=== PATIENT | female | born 1945 | race Caucasian/White ===

== ENCOUNTER 2016-05-05 09:35 | Outpatient (CLI) ==
--- NOTE | 2016-05-05 11:25 | DI ---
Exam: Chest two views History: Cough and hemoptysis Findings: PA and lateral views of the chest were obtained and shows no evidence of concerning pulmo nary nodule or mass nor discrete area of infiltrate or consolidate. Cardiac silhouette is upper nelson its of normal for degree of inspiratory effort taken. No evidence of vascular congestion or redistr ibution, pleural effusion, brooks enlargement nor mediastinal widening identified. Impression: No active cardiac or pulmonary disease. Borderline cardiac enlargement. Patient statu s post prior cervical spinal surgery. Mild elevation of the right hemidiaphragm. Suspect prior cho lecystectomy.
== END 2016-05-05 09:36 | disposition home or self-care (01) ==
LOC: RAD 09:35
PROVIDERS: ATTEND Family Medicine
DX: R04.2 Hemoptysis (principal); R05 Cough

== ENCOUNTER 2016-05-27 08:23 | Outpatient (CLI) ==
[2016-05-27 08:56] LABS: CREATININE 0.78 mg/dL (0.60-1.30)
--- NOTE | 2016-05-27 10:56 | CT ---
EXAM: CT chest with contrast HISTORY: Cough and hemoptysis COMPARISON: Chest x-ray 05/05/[address] abdomen pelvis 08/01/2013 TECHNIQUE: Serial axial images of the chest were obtained after 75 ml of Omnipaque IV contrast was administered. These were obtained from the lung apices to the upper abdomen. FINDINGS: The thyroid is normal. Visualized vessels are unremarkable. There is no dissection, ane urysm or stenosis. The heart is normal in size without pericardial effusion. There is no mediastin al, hilar or axillary pathologically enlarged lymph nodes. There is no pneumothorax or pleural effusion. There is mild bilateral subpleural fibrosis/atelectas is. There is no visualized honeycombing. There is no consolidation or mass. There is a 0.6 cm nod ule in the left lower lobe on image 39. This was poorly visualized, but present on exam 2014 and matty sured approximately 0.5 cm in diameter. No additional nodule is identified. The soft tissues in the upper abdomen on this limited evaluation demonstrate prior cholecystectomy. The osseous structures are unremarkable. IMPRESSION: 1. No acute cardiopulmonary process or consolidation. 2. Anterior left lower lobe pulmonary nodule measuring 0.6 cm in diameter was present on prior CT i n 2013 with minimal interval change. Follow-up CT chest in 1 year is recommended. 3. Mild subpleural fibrosis versus atelectasis is present with no acute consolidation or mass.
== END 2016-05-27 08:24 | disposition home or self-care (01) ==
LOC: RAD 08:23
PROVIDERS: ATTEND Family Medicine
DX: R05 Cough (principal); R04.2 Hemoptysis
CPT/HCPCS: 36415; 82565

== ENCOUNTER 2016-11-17 13:00 | Outpatient (RCR) ==
--- NOTE | 2016-10-21 17:29 | RS.OPPTEV2 ---
Date of Note: 10/20/16 Visit #: 1 Date of Evaluation: 10/20/16 Payer Source: MEDICARE Treatment Diagnosis: Neck pain, left UE pain History of Condition/Mechanism of Injury:: Patient reports left sided neck and shoulder pain began after her ACF on 04/07/16. Prior Level of Function.....Patient was independent with: ADL's, Self Care, Caregiving, Ambulation/Mobility, Community Integration/Access Level of Function: Driving, reading, and recreational activites are difficult because of pain. Functional Limitations: Sleep, Self Care, ADL's, Reaching, Pushing, Pulling, Lifting, Carrying, Community Access/Integration Current Subjective/complaints:: Patient reports ACF was of C4-6. States since surgery, she has not regained her strength in the left UE. States she has pain on the left side of the neck with stiffness. Pain at times will radiate down the left UE into the forearm. She reports difficulty with movement of the left shoulder because of pain. She has headaches daily. Describes pain in and behind and left ear. States she has enjoyed hunting for many years, and this past Spring, she was unable to effectively lan due to lack of left UE strength. 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 Pain Assessment - Pain Description Pain Location: left side of neck and left shoulder Current Pain Intensity: not quantified Worst Pain Intensity: not quantified Functional Outcome Measure Neck Disability Index: 54 - G Codes & Severity Modifier G Codes & Modifier: Body Position current CK. Body Position goal CI Source of G Code score: Neck disability Index Observation - Observation Posture: Forward Head, Rounded Shoulders, Scapula Asymmetry (right scapula lower than the left) Handedness: Right - ROM Comments: Cervical AROM: flexion WFL's, extension ~50% of normal range. Left rotation 50% of normal range, Right rotation 75% of normal range. Right UE AROM is WFL's. Left shoulder AROM is functional, but patient demonstrates difficulty with AROM into abduction and ER. - Left Shoulder ROM Comments: Left shoulder AROM is WFL's. Most pain is with shoulder abduction. - Left Shoulder Strength Left Shoulder Flexion: 4+ Good + Left Shoulder Extension: 5 Normal Left Shoulder Abduction: 4 Good Left Shoulder Adduction: 5 Normal Left Shoulder External Rotation: 4 Good Left Shoulder Internal Rotation: 4 Good - Right Shoulder Strength Right Shoulder Flexion: 5 Normal Right Shoulder Extension: 5 Normal Right Shoulder Abduction: 5 Normal Right Shoulder Adduction: 5 Normal Right Shoulder External Rotation: 5 Normal Right Shoulder Internal Rotation: 5 Normal - Special Tests Shoulder Empty Can (Supraspinatus) Test: Negative Right, Positive Left Shoulder Speed's Sign Test: Negative Left, Negative Right Shoulder Drop Arm Test: Negative Left, Negative Right Shoulder Lemons-Mele Impingement Test: Negative Right, Positive Left Radio Tower Technician Strength Left Hand Radio Tower Technician Strength: 45 lbs. Right Hand Radio Tower Technician Strength: 57 lbs. Dynamometer Testing Position: 2nd Position Palpation Comments:: Demonstrates moderate increased muscle tone along the left upper traps. Minimal increased muscle tone in the right upper traps. Suboccipital myofascia demonstrates increased muscle tone, moderately. Reports discomfort with palpation to the left cervical paraspinals, left upper traps, and superior aspect of the left SCM. Sensation - Sensation Right Lower Extremity: Intact/Normal Left Lower Extremity: Intact/Normal Interventions - Exercise/Activities/Manual Therapy Exercises/Activities: patient instructed in HEP of gentle cervical rotation, scapular retraction, pendulum exercise and RTC series for the left shoulder in a pain free range. 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 She reports left sided neck and UE pain. Moderate increased muscle tone and tenderness noted in the cervical spine and left upper traps region. She exhibits limited cervical rotation bilaterally and pain with left shoulder AROM into abduction. She demosntrates positive Empty Can and Impingement tests on the left shoulder. She presents to be experiencing overlapping symptoms from the neck and the left shoulder. She will benefit from manual therapy, gentle stretching, and cervical spine stability exercises to address the cervical spine. She will also benefit from RTC strengthening and modalities as indicated to reduce symtpoms from the left shoulder. Education and posture awareness training will benefit both areas to be addressed. Patient Education: Education of diagnosis, Body/Joint mechanics, Home Exercise Program, Activity Modification, Education of Plan of Care Rehab Potential: Good Short Term Goals Goal #1: Patient independent in initial HEP. Goal to be met by: 11/04/16 Goal #2: Muscle tone at left upper traps decreased to minimal. Goal to be met by: 11/04/16 Goal #3: Cervical rotation bilaterally WFL's. Goal to be met by: 11/04/16 Goal #4: Headaches decreased to occasional. Goal to be met by: 11/04/16 [employer] Tech Goals Goal #1: Pt knows HEP and to continue ex's to maintain functional level at D/C. Goal to be met by: 12/05/16 Goal #2: Score on Neck Disability Index improved to 32. Goal to be met by: 12/05/16 Goal #3: Pt able to drive without neck pain or limitation of neck motion. Goal to be met by: 12/05/16 Goal #4: Pt able to perform ADL's and reaching without left shoulder pain. Goal to be met by: 12/05/16 Plan - Treatment to be Provided Procedures: Therapeutic Exercises, Therapeutic Activity, Manual Therapy, Patient Education Modalities: Electrical Stimulation, Ultrasound/Phonophoresis (left shoulder), Cryotherapy, Hot Packs - Treatment Plan Frequency: 3 X week Duration: 4 weeks ORDER # VISITS AND/OR THROUGH DATE: 12/05/16 - Treatment Code (1) Neck pain Comments: M54.2 (2) Left shoulder pain Qualifiers: Chronicity: acute Qualified Description: Acute pain of left shoulder Qualifier Code(s): (M25.512) Pain in left shoulder (3) Status post cervical spinal fusion Comments: Z98.1
--- NOTE | 2016-10-22 14:48 | RS.OPPTDN ---
Subjective Date of Note: 10/22/16 Visit #: 2 Date of Evaluation: 10/20/16 Payer Source: MEDICARE Treatment Diagnosis: Neck pain, left UE pain Current Subjective/complaints:: Patient reports some of her shoulder exercises seem to elevate her pain .We discussed to do HEP in PAIN FREE ROM. Pain Assessment - Pain Description Pain Location: left side of neck and left shoulder Pain Description: Radiating, Aching Current Pain Intensity: not quantified - Treatment Modality: Electrical Stim Unattended Parameters/Method Applied: 20 mins. high volt to L upper traps. and cervical paraspinals,2 electrodes @ 115 pv. Patient Position: Sitting - Heat/Cryotherapy Treatment: Hot Pack (concurrent with e-stim) Interventions - Exercise/Activities/Manual Therapy Exercises/Activities: Gentle cervical rotation, scapular retraction, pendulum exercise and RTC series for the left shoulder in a pain free range. Total minutes of Exercise: 15 Manual Therapy: 20 mins. DTM to upper traps and cervical paraspinals . Total minutes of Manual Therapy: 20 HOME EXERCISE PROGRAM: cervical rotation stretch, scapular retraction, pendulum and RTC series for left shoulder - Charges Total Direct Minutes: 35 Total Treatment Time: 55 Procedures billed for this date of service:: hp,e-stim,ex,manual therapy Assessment: Patient has increase pain with AROM of the L UE,especially involving the supraspinatus action.She has increased tone in the L upper traps. and L cervical paraspinals.She is very attentive to recommendations regarding the HEP. Patient Education: Education of diagnosis, Body/Joint mechanics, Home Exercise Program, Home Safety, Activity Modification, Education of Plan of Care Short Term Goals Goal #1: Patient independent in initial HEP. Goal to be met by: 11/04/16 Progress towards Goal:: Progressing Goal #2: Muscle tone at left upper traps decreased to minimal. Goal to be met by: 11/04/16 Goal #3: Cervical rotation bilaterally WFL's. Goal to be met by: 11/04/16 Goal #4: Headaches decreased to occasional. Goal to be met by: 11/04/16 Metal Annealer Goals Goal #1: Pt knows HEP and to continue ex's to maintain functional level at D/C. Goal to be met by: 12/05/16 Goal #2: Score on Neck Disability Index improved to 32. Goal to be met by: 12/05/16 Goal #3: Pt able to drive without neck pain or limitation of neck motion. Goal to be met by: 12/05/16 Goal #4: Pt able to perform ADL's and reaching without left shoulder pain. Goal to be met by: 12/05/16 Plan PLAN OF CARE EXPIRES ON:: 12/05/16 ORDER # VISITS AND/OR THROUGH DATE: 12/05/16 PLAN: Continue Plan of Care
--- NOTE | 2016-10-27 14:45 | RS.OPPTDN ---
Subjective Date of Note: 10/27/16 Visit #: 3 Date of Evaluation: 10/20/16 Payer Source: MEDICARE Treatment Diagnosis: Neck pain, left UE pain Current Subjective/complaints:: Patient reports some relief from her headache after last session.The L shoulder pain is dependent upon position of the L UE. Pain Assessment - Pain Description Pain Location: left side of neck and left shoulder Pain Description: Radiating, Aching Current Pain Intensity: not quantified - Treatment Modality: Electrical Stim Unattended Parameters/Method Applied: 20 mins. high - volt to L cervical paraspinals and L upper traps. @ 150 pv. Patient Position: Sitting - Heat/Cryotherapy Treatment: Hot Pack (concurrent with e-stim) Interventions - Exercise/Activities/Manual Therapy Exercises/Activities: Gentle cervical rotation, scapular retraction, chin tucks, patient ed. for RTC exercises.AAROM of L shoulder in all directions,but no overhead motion due to pain. Total minutes of Exercise: 20 Manual Therapy: 20 mins. DTM to upper traps and cervical paraspinals . Total minutes of Manual Therapy: 20 HOME EXERCISE PROGRAM: cervical rotation stretch, scapular retraction, pendulum and RTC series for left shoulder - Charges Total Direct Minutes: 40 Total Treatment Time: 60 Procedures billed for this date of service:: hp,e-stim,ex,manual therapy. Assessment: Patient reports relief from headache after PT today.Her cervical rotation to the L is limited 50% of normal.She needs tactile cues for proper technique doing chin tucks today ,but improves as reps. progress.She has increased tone in the cervical paraspinals and muscle belly of the L upper trap. Patient Education: Education of diagnosis, Body/Joint mechanics, Home Exercise Program, Home Safety, Activity Modification, Education of Plan of Care Short Term Goals Goal #1: Patient independent in initial HEP. Goal to be met by: 11/04/16 Progress towards Goal:: Progressing Goal #2: Muscle tone at left upper traps decreased to minimal. Goal to be met by: 11/04/16 Goal #3: Cervical rotation bilaterally WFL's. Goal to be met by: 11/04/16 Goal #4: Headaches decreased to occasional. 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 Goal to be met by: 12/05/16 Progress towards goal: Progressing Goal #2: Score on Neck Disability Index improved to 32. Goal to be met by: 12/05/16 Goal #3: Pt able to drive without neck pain or limitation of neck motion. Goal to be met by: 12/05/16 Goal #4: Pt able to perform ADL's and reaching without left shoulder pain. Goal to be met by: 12/05/16 Progress towards goal: No Change Plan PLAN OF CARE EXPIRES ON:: 12/05/16 ORDER # VISITS AND/OR THROUGH DATE: 12/05/16 PLAN: Continue Plan of Care
--- NOTE | 2016-10-29 14:20 | RS.OPPTDN ---
Subjective Date of Note: 10/29/16 Visit #: 4 Date of Evaluation: 10/20/16 Payer Source: MEDICARE Treatment Diagnosis: Neck pain, left UE pain Current Subjective/complaints:: Patient reports the neck feels better today,and she is doing her exercises. Pain Assessment - Pain Description Pain Location: left side of neck and left shoulder Pain Description: Dull, Aching Current Pain Intensity: 3-4/10 Other Comments regarding Pain:: muscle soreness in the upper traps - Treatment Modality: Electrical Stim Unattended Parameters/Method Applied: 20 mins. high volt ,2 electrodes to each upper trap @ 145 pv. Patient Position: Sitting - Heat/Cryotherapy Treatment: Hot Pack (concurrent with e-stim) Interventions - Exercise/Activities/Manual Therapy Exercises/Activities: HEP review during manual therapy. Total minutes of Exercise: 0 Manual Therapy: 35 mins. DTM to upper traps and cervical paraspinals . Total minutes of Manual Therapy: 35 HOME EXERCISE PROGRAM: cervical rotation stretch, scapular retraction, pendulum and RTC series for left shoulder - Charges Total Direct Minutes: 35 Total Treatment Time: 55 Procedures billed for this date of service:: hp,e-stim,manual therapy Assessment: Patient has decreased tone in the upper traps. today,less tender to palpate the occipital region.She has good understanding of the HEP,has improved awareness of her posture. Patient Education: Body/Joint mechanics, Home Exercise Program, Education of Plan of Care Patient demonstrates compliance with HEP?: Yes Short Term Goals Goal #1: Patient independent in initial HEP. Goal to be met by: 11/04/16 Progress towards Goal:: Progressing Goal #2: Muscle tone at left upper traps decreased to minimal. Goal to be met by: 11/04/16 Progress towards Goal:: Progressing Goal #3: Cervical rotation bilaterally WFL's. Goal to be met by: 11/04/16 (R improving,no change in L rotation) Progress towards Goal:: Progressing Goal #4: Headaches decreased to occasional. Goal to be met by: 11/04/16 Progress towards Goal:: Progressing [employer] Consultant Goals Goal #1: Pt knows HEP and to continue ex's to maintain functional level at D/C. Goal to be met by: 12/05/16 Progress towards goal: Progressing Goal #2: Score on Neck Disability Index improved to 32. Goal to be met by: 12/05/16 Goal #3: Pt able to drive without neck pain or limitation of neck motion. Goal to be met by: 12/05/16 Goal #4: Pt able to perform ADL's and reaching without left shoulder pain. Goal to be met by: 12/05/16 Progress towards goal: No Change Plan PLAN OF CARE EXPIRES ON:: 12/05/16 ORDER # VISITS AND/OR THROUGH DATE: 12/05/16 PLAN: Continue Plan of Care
--- NOTE | 2016-11-03 14:43 | RS.OPPTDN ---
Subjective Date of Note: 11/03/16 Visit #: 5 Date of Evaluation: 10/20/16 Payer Source: MEDICARE Treatment Diagnosis: Neck pain, left UE pain Current Subjective/complaints:: Reports the therapy is helping .She feels the neck is progressing well,but does have concerns regarding the L shoulder pain. Pain Assessment - Pain Description Pain Location: left side of neck and left shoulder Pain Description: Dull Current Pain Intensity: none in neck,unchanged in the L shoulder - Heat/Cryotherapy Treatment: Hot Pack (15 mins. to cervical,prior to exercises and manual ) Interventions - Exercise/Activities/Manual Therapy Exercises/Activities: 20 mins. of yellow theraband exercises,including postural pullbacks at shoulder level,L shoulder IR and ER with UE abducted ~ 40 degrees.Cervical chin tucks ,rotation to L and R . Total minutes of Exercise: 20 Manual Therapy: 30 mins. DTM to upper traps and cervical paraspinals . Total minutes of Manual Therapy: 30 HOME EXERCISE PROGRAM: cervical rotation stretch, scapular retraction, pendulum and RTC series for left shoulder - Charges Total Direct Minutes: 50 Total Treatment Time: 65 Procedures billed for this date of service:: hp,ex ,manual therapy 2 Assessment: Patient has improved cervical motion with less report of pain today.She can tolerate use of the L UE for tasks below shoulder,but overhead reaching or reaching away from the body elicits pain.She does have good understanding of HEP and joint protection. Patient demonstrates compliance with HEP?: Yes Short Term Goals Goal #1: Patient independent in initial HEP. Goal to be met by: 11/04/16 Progress towards Goal:: Progressing Goal #2: Muscle tone at left upper traps decreased to minimal. Goal to be met by: 11/04/16 Progress towards Goal:: Partially Met Goal #3: Cervical rotation bilaterally WFL's. Goal to be met by: 11/04/16 Progress towards Goal:: Progressing Goal #4: Headaches decreased to occasional. Goal to be met by: 11/04/16 Progress towards Goal:: Progressing Group Home Goals Goal #1: Pt knows HEP and to continue ex's to maintain functional level at D/C. Goal to be met by: 12/05/16 Progress towards goal: Progressing Goal #2: Score on Neck Disability Index improved to 32. Goal to be met by: 12/05/16 Goal #3: Pt able to drive without neck pain or limitation of neck motion. Goal to be met by: 12/05/16 Progress towards goal: Progressing Goal #4: Pt able to perform ADL's and reaching without left shoulder pain. Goal to be met by: 12/05/16 Progress towards goal: No Change Plan PLAN OF CARE EXPIRES ON:: 12/05/16 ORDER # VISITS AND/OR THROUGH DATE: 12/05/16 PLAN: Continue Plan of Care
--- NOTE | 2016-11-05 15:28 | RS.OPPTDN ---
Subjective Date of Note: 11/05/16 Visit #: 6 Date of Evaluation: 10/20/16 Payer Source: MEDICARE Treatment Diagnosis: Neck pain, left UE pain Current Subjective/complaints:: Patient reports she continues to feel better.She does report slight increased stiffness in the neck and L shoulder , possibly due to rainy weather. Pain Assessment - Pain Description Pain Location: left side of neck and left shoulder Pain Description: Dull Current Pain Intensity: none in neck,unchanged in the L shoulder - Treatment Modality: Electrical Stim Unattended Parameters/Method Applied: 20 mins. high volt to upper traps ,2 electrodes,@ 165 - 185 pv. Patient Position: Sitting - Heat/Cryotherapy Treatment: Hot Pack (20 mins. prior to manual therapy) Interventions - Exercise/Activities/Manual Therapy Exercises/Activities: N/A today Total minutes of Exercise: 0 Manual Therapy: 35 mins. DTM to upper traps and cervical paraspinals . Total minutes of Manual Therapy: 35 HOME EXERCISE PROGRAM: cervical rotation stretch, scapular retraction, pendulum and RTC series for left shoulder - Charges Total Direct Minutes: 35 Total Treatment Time: 55 Procedures billed for this date of service:: hp,e-stim,manual therapy 2 Assessment: Patient has decreased neck pain ,also less frequent ,less duration with ADL's.The L shoulder has no significant change,still reports difficulty with reaching away from midline ,causing pain and feeling weak. Patient Education: Education of diagnosis, Body/Joint mechanics, Home Exercise Program, Home Safety, Activity Modification, Education of Plan of Care Patient demonstrates compliance with HEP?: Yes Short Term Goals Goal #1: Patient independent in initial HEP. Goal to be met by: 11/04/16 Progress towards Goal:: Partially Met Goal #2: Muscle tone at left upper traps decreased to minimal. Goal to be met by: 11/04/16 Progress towards Goal:: Partially Met Goal #3: Cervical rotation bilaterally WFL's. Goal to be met by: 11/04/16 Progress towards Goal:: Partially Met Goal #4: Headaches decreased to occasional. Goal to be met by: 11/04/16 Progress towards Goal:: Partially Met Detention Goals Goal #1: Pt knows HEP and to continue ex's to maintain functional level at D/C. Goal to be met by: 12/05/16 Progress towards goal: Progressing Goal #2: Score on Neck Disability Index improved to 32. Goal to be met by: 12/05/16 Goal #3: Pt able to drive without neck pain or limitation of neck motion. Goal to be met by: 12/05/16 Progress towards goal: Progressing Goal #4: Pt able to perform ADL's and reaching without left shoulder pain. Goal to be met by: 12/05/16 Progress towards goal: No Change Plan PLAN OF CARE EXPIRES ON:: 12/05/16 ORDER # VISITS AND/OR THROUGH DATE: 12/05/16 PLAN: Continue Plan of Care
--- NOTE | 2016-11-10 16:11 | RS.OPPTDN ---
Subjective Date of Note: 11/10/16 Visit #: 7 Date of Evaluation: 10/20/16 Payer Source: MEDICARE Treatment Diagnosis: Neck pain, left UE pain Current Subjective/complaints:: Patient reports an increase in left upper trap and shoulder pain today. States she aggravated pain over the weekend. Pain Assessment - Pain Description Pain Location: left side of neck and left shoulder Pain Description: Dull Current Pain Intensity: none in neck,unchanged in the L shoulder - Treatment Modality: Electrical Stim Unattended Parameters/Method Applied: [id number] HVGC to 130p.v. with 4 small pads to the cervical paraspinals and upper traps with HP prior to MT. Patient Position: Sitting - Heat/Cryotherapy Treatment: Hot Pack ([id number] with Estim ) Interventions - Exercise/Activities/Manual Therapy Exercises/Activities: Gentle cervical lateral flexion stretching. Reviewed isometric cervical retraction and lateral flexion for HEP. Total minutes of Exercise: 3mins Manual Therapy: 25 mins. DTM to upper traps and cervical paraspinals. Patient in sitting. Total minutes of Manual Therapy: 25mins HOME EXERCISE PROGRAM: cervical rotation stretch, scapular retraction, pendulum and RTC series for left shoulder - Charges Total Direct Minutes: 28mins Total Treatment Time: 48mins Procedures billed for this date of service:: HP, Estim unattended, MT2 Assessment: Patient responds well to treatment and will need to progress with HEP. Patient Education: Home Exercise Program Patient demonstrates compliance with HEP?: Yes Short Term Goals Goal #1: Patient independent in initial HEP. Goal to be met by: 11/04/16 Progress towards Goal:: Partially Met Goal #2: Muscle tone at left upper traps decreased to minimal. Goal to be met by: 11/04/16 Progress towards Goal:: Partially Met Goal #3: Cervical rotation bilaterally WFL's. Goal to be met by: 11/04/16 Progress towards Goal:: Partially Met Goal #4: Headaches decreased to occasional. Goal to be met by: 11/04/16 Progress towards Goal:: Partially Met Assisted Goals Goal #1: Pt knows HEP and to continue ex's to maintain functional level at D/C. Goal to be met by: 12/05/16 Progress towards goal: Progressing Goal #2: Score on Neck Disability Index improved to 32. Goal to be met by: 12/05/16 Goal #3: Pt able to drive without neck pain or limitation of neck motion. Goal to be met by: 12/05/16 Progress towards goal: Progressing Goal #4: Pt able to perform ADL's and reaching without left shoulder pain. Goal to be met by: 12/05/16 Progress towards goal: No Change Plan PLAN OF CARE EXPIRES ON:: 12/05/16 ORDER # VISITS AND/OR THROUGH DATE: 12/05/16 PLAN: Continue Plan of Care
--- NOTE | 2016-11-12 14:13 | RS.OPPTDN ---
Subjective Date of Note: 11/12/16 Visit #: 8 Date of Evaluation: 10/20/16 Payer Source: MEDICARE Treatment Diagnosis: Neck pain, left UE pain Current Subjective/complaints:: Patient reports the neck continues to improve,L shoulderis the same. Pain Assessment - Pain Description Pain Location: left side of neck and left shoulder Pain Description: Dull, Aching Current Pain Intensity: 2/10 - Treatment Modality: Electrical Stim Unattended Parameters/Method Applied: 20 mins. high volt to upper traps , 2 large electrodes @ 145 pv. Patient Position: Sitting - Heat/Cryotherapy Treatment: Hot Pack (concurrent with e-stim) Interventions - Exercise/Activities/Manual Therapy Exercises/Activities: HEP review only. Total minutes of Exercise: 0 Manual Therapy: 20 mins. DTM to upper traps and cervical paraspinals. Patient in sitting. Total minutes of Manual Therapy: 20 HOME EXERCISE PROGRAM: cervical rotation stretch, scapular retraction, pendulum and RTC series for left shoulder - Charges Total Direct Minutes: 20 Total Treatment Time: 40 Procedures billed for this date of service:: hp,e-stim,manual 1 Assessment: Patient reports less difficulty with driving and also less frequency of headaches.She is very attentive and compliant to HEP. Patient Education: Education of Plan of Care Patient demonstrates compliance with HEP?: Yes Short Term Goals Goal #1: Patient independent in initial HEP. Goal to be met by: 11/04/16 Progress towards Goal:: Met Goal #2: Muscle tone at left upper traps decreased to minimal. Goal to be met by: 11/04/16 Progress towards Goal:: Partially Met Goal #3: Cervical rotation bilaterally WFL's. Goal to be met by: 11/04/16 Progress towards Goal:: Partially Met Goal #4: Headaches decreased to occasional. 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 Goal to be met by: 12/05/16 Progress towards goal: Partially Met Goal #2: Score on Neck Disability Index improved to 32. Goal to be met by: 12/05/16 Goal #3: Pt able to drive without neck pain or limitation of neck motion. Goal to be met by: 12/05/16 Progress towards goal: Partially Met Goal #4: Pt able to perform ADL's and reaching without left shoulder pain. Goal to be met by: 12/05/16 Progress towards goal: No Change Plan PLAN OF CARE EXPIRES ON:: 12/05/16 ORDER # VISITS AND/OR THROUGH DATE: 12/05/16 PLAN: Continue Plan of Care
--- NOTE | 2016-11-17 14:13 | RS.OPPTDN ---
Subjective Date of Note: 11/17/16 Visit #: 9 Date of Evaluation: 10/20/16 Payer Source: MEDICARE Treatment Diagnosis: Neck pain, left UE pain Current Subjective/complaints:: Patient reports she has not had a hedahe for about one week,pleased with her progress in regards to the neck.The L shoulder is the same ,she reached to get money from [employer] earlier today while in her car , causing sudden ,sharp pain . Pain Assessment - Pain Description Pain Location: left shoulder only today Pain Description: Dull, Aching Current Pain Intensity: 0 in neck,L shoulder varies - Treatment Modality: Electrical Stim Unattended Parameters/Method Applied: 20 mins. high volt to upper traps.,2 large electrodes @ 155 pv. Patient Position: Sitting - Heat/Cryotherapy Treatment: Hot Pack (concurrent wirh e-stim) Interventions - Exercise/Activities/Manual Therapy Exercises/Activities: HEP review only. Total minutes of Exercise: 0 Manual Therapy: 20 mins. DTM to upper traps and cervical paraspinals. Patient in sitting. HOME EXERCISE PROGRAM: cervical rotation stretch, scapular retraction, pendulum and RTC series for left shoulder - Charges Total Direct Minutes: 20 Total Treatment Time: 40 Procedures billed for this date of service:: hp,e-stim,manual Assessment: Patient has no neck pain today,less frequent headaches.The L shoulder is basically unchanged,the varied pain due to positioning of the L UE. Patient Education: Education of Plan of Care Patient demonstrates compliance with HEP?: Yes Short Term Goals Goal #1: Patient independent in initial HEP. Goal to be met by: 11/04/16 Progress towards Goal:: Met Goal #2: Muscle tone at left upper traps decreased to minimal. Goal to be met by: 11/04/16 Progress towards Goal:: Partially Met Goal #3: Cervical rotation bilaterally WFL's. Goal to be met by: 11/04/16 Progress towards Goal:: Partially Met Goal #4: Headaches decreased to occasional. Goal to be met by: 11/04/16 Progress towards Goal:: Partially Met Usp Goals Goal #1: Pt knows HEP and to continue ex's to maintain functional level at D/C. Goal to be met by: 12/05/16 Progress towards goal: Met Goal #2: Score on Neck Disability Index improved to 32. Goal to be met by: 12/05/16 Goal #3: Pt able to drive without neck pain or limitation of neck motion. Goal to be met by: 12/05/16 Progress towards goal: Partially Met Goal #4: Pt able to perform ADL's and reaching without left shoulder pain. Goal to be met by: 12/05/16 Progress towards goal: No Change Plan PLAN OF CARE EXPIRES ON:: 12/05/16 ORDER # VISITS AND/OR THROUGH DATE: 12/05/16 PLAN: Continue Plan of Care
--- NOTE | 2016-11-19 08:19 | RS.CXNS ---
Date of scheduled appointment: 11/19/16 Type: Cancel Reason for Cancel/NS: Sick,re-scheduled for next 11-25-16.
== END 2016-11-19 ==
PROVIDERS: ATTEND Neurological Surgery
DX: M47.812 Spondylosis without myelopathy or radiculopathy, cervical region (principal)

== ENCOUNTER 2016-11-25 12:46 | Outpatient (RCR) ==
--- NOTE | 2016-11-25 14:33 | RS.OPPTDN ---
Subjective Date of Note: 11/25/16 Visit #: 10 Date of Evaluation: 10/20/16 Payer Source: MEDICARE Treatment Diagnosis: Neck pain, left UE pain Current Subjective/complaints:: Pleased with her progress,agrees with D/C plan today.She has purchased a TENS unit for home use,is doing her home exercises for the neck.She plans to see orthopaedic doctor regarding the L shoulder pain , which has unchanged. Pain Assessment - Pain Description Pain Location: left shoulder only today Pain Description: Aching Current Pain Intensity: 0 in neck,L shoulder varies with positioning - Treatment Modality: Electrical Stim Unattended Parameters/Method Applied: 20 mins. high volt ,2 large electrodes to upper traps ,@ 170 pv. Patient Position: Sitting - Heat/Cryotherapy Treatment: Hot Pack (concurrent with e-stim) Interventions - Exercise/Activities/Manual Therapy Exercises/Activities: HEP review while receiving manual therapy. Total minutes of Exercise: 0 Manual Therapy: 20 mins. DTM to upper traps and cervical paraspinals. Patient in sitting. Total minutes of Manual Therapy: 20 HOME EXERCISE PROGRAM: cervical rotation stretch, scapular retraction, pendulum and RTC series for left shoulder - Charges Total Direct Minutes: 20 Total Treatment Time: 40 Procedures billed for this date of service:: hp,e-stim,ex 1 Assessment: Patient has met or partially met rehab goals ,is very compliant to recommendations for pain control and joint protection.The L shoulder continues to be painful when reaching away from midline or overhead.She does plan to get a referral for the shoulder care. Patient Education: Body/Joint mechanics, Home Exercise Program, Activity Modification, Education of Plan of Care Patient demonstrates compliance with HEP?: Yes Short Term Goals Goal #1: Patient independent in initial HEP. Goal to be met by: 11/04/16 Progress towards Goal:: Met Goal #2: Muscle tone at left upper traps decreased to minimal. Goal to be met by: 11/04/16 Progress towards Goal:: Partially Met Goal #3: Cervical rotation bilaterally WFL's. Goal to be met by: 11/04/16 Progress towards Goal:: Met Goal #4: Headaches decreased to occasional. Goal to be met by: 11/04/16 Progress towards Goal:: Partially Met Retirement Goals Goal #1: Pt knows HEP and to continue ex's to maintain functional level at D/C. Goal to be met by: 12/05/16 Progress towards goal: Met Goal #2: Score on Neck Disability Index improved to 32. Goal to be met by: 12/05/16 (30) Progress towards goal: Met Goal #3: Pt able to drive without neck pain or limitation of neck motion. Goal to be met by: 12/05/16 Progress towards goal: Met Goal #4: Pt able to perform ADL's and reaching without left shoulder pain. Goal to be met by: 12/05/16 Progress towards goal: No Change Plan PLAN OF CARE EXPIRES ON:: 12/05/16 ORDER # VISITS AND/OR THROUGH DATE: 12/05/16 PLAN: Plan for Discharge
== END 2016-12-19 ==
PROVIDERS: ATTEND Neurological Surgery
DX: M47.812 Spondylosis without myelopathy or radiculopathy, cervical region (principal)

== ENCOUNTER 2018-05-27 13:58 | Outpatient (CLI) ==
--- NOTE | 2018-05-27 15:00 | DI ---
EXAM: CERVICAL SPINE, 3 VIEWS HISTORY: Cervical spondylosis. FINDINGS: No comparison. Anterior stabilization hardware and disc spacers extend from C4 through C6 . Hardware appears intact. There is no noticeable spondylolisthesis. The bones appear demineralize d. No acute fracture is obvious. Facet arthropathy is most noted at the cervical thoracic junction. There is diffuse degenerative disc disease. No scoliosis. Lateral masses of C1 and C2 are normal ly aligned and the odontoid process is intact. IMPRESSION: 1. Postop changes of the spine. Degenerative disc and facet disease. No acute findings.
--- NOTE | 2018-05-27 15:19 | DI ---
EXAM: Three views of the lumbar spine HISTORY: Lumbar disc degenerative disease. COMPARISON: Lumbar spine x-ray 01/19/2011 FINDINGS: No acute compression fracture or subluxation. There is trace anterolisthesis of L4 on L5. There is moderate facet arthropathy. There is no lytic or blastic lesion. Soft tissues demonstrate surgical clips in right upper quadrant. IMPRESSION: Trace anterolisthesis of L4 on L5 with moderate degenerative disease of the lumbosacral spine.
--- NOTE | 2018-05-27 15:21 | DI ---
EXAM: Three views of the thoracic spine HISTORY: Degenerative disease of the spine. COMPARISON: CT chest 05/27/2016 FINDINGS: There is no acute compression fracture or subluxation. There is no lytic or blastic lesion . There is multilevel disc space narrowing and minimal osteophyte formation. The soft tissues are u nremarkable IMPRESSION: Scattered degenerative disease of the thoracic spine. There is no acute compression fra cture noted.
--- NOTE | 2018-05-28 11:08 | MRI ---
EXAM: MRI lumbar spine without IV contrast. DATE: 27 May 2018. HISTORY: Lumbar disc disorder. Low back pain. Bilateral lower extremity numbness. TECHNIQUE: Sagittal and axial T1W and T2W sequences of the lumbar spine along with sagittal IR and c oronal T2W sequences were obtained using 1.2 Tatiana magnet. No IV contrast. COMPARISON: LS spine series [address] abdomen/pelvis 08/01/2013. FINDINGS: There are five [id number] lumbar vertebra. No lumbar scoliosis is evident. A 2.2 mm anterolisthesis of L4 relative to L5 is evident. No other subluxation, acute fracture, osseous bhargavi gnancy, or pars interarticularis defect is demonstrated. Lumbar vertebra are normal in height. Smal l osteophytes are visible at L1-2. T2W/T1W bone marrow signal is brighter than typically seen. Mode rate L1-2 and minor L4-5 disc space narrowing is detected. No acute sacral fracture or stress reacti on is evident. SI joints are unremarkable. Conus medullaris terminates at L2. No cord edema, syrin x, myelomalacia, or neoplasm is identified. No retroperitoneal lymphadenopathy, paraspinal mass, or aortic aneurysm is detected. Atherosclerotic plaques are present within the aortic wall. Paraspinal musculature is symmetric bilaterally. Visib le portions of the liver, spleen, adrenal glands and kidneys reveal no distinct abnormality. CBD is 9 mm diameter, without distinct choledocholithiasis, pancreatic head mass, or pancreatitis. Gallblad aspen is surgically absent. Segmental analysis: T11-12: Normal. T12-L1: Minimal posterior disc bulge does not cause cord compression, central stenosis or foraminal stenosis. L1-2: Small concentric disc bulge and minor facet arthropathy cause mild bilateral foraminal stenose s. No central canal stenosis. L2-3: Minor posterior to foraminal disc bulge causes slight bilateral inferior foraminal encroachmen t. No central canal stenosis. L3-4: Minor posterior to foraminal disc bulge, mild facet arthropathy, and mild ligamentum flavum hy pertrophy cause triangulation of the canal and slight bilateral foraminal encroachment. L4-5: Minor anterolisthesis of L4, pseudodisc bulge, marked bilateral facet arthropathy, and mild li gamentum flavum hypertrophy cause mild central canal stenosis, mild right foraminal stenosis, and mil d/moderate narrowing at the opening to the left foramen. Left L4 nerve root approaches the disc bulg e near the lateral margin of the foramen. L5-S1: Minor posterior disc bulge, marked right facet arthropathy, and moderate left facet arthropat hy cause minor bilateral foraminal encroachment. No central canal stenosis. IMPRESSIONS: 1. Lumbar spine minor spondylosis, multilevel facet arthropathy (especially L4-5 and L5-S1), and mul tilevel DDD. 2. Triangulation of canal at L3-4. Mild central stenosis at L4-5. 3. Multilevel lumbar foraminal stenoses, especially left L5-S1. Left L4 nerve root may contact the disc bulge near the lateral margin of the foramen, and might be a source for pain/radiculopathy. 4. Bone marrow signal suspicious for osteopenia. Consider bone densitometry. 5. Mild abdominal aortic atherosclerosis. 6. S/P cholecystectomy, this 9 mm CBD is likely within normal limits.
== END 2018-05-27 13:59 | disposition home or self-care (01) ==
LOC: RAD 13:58
PROVIDERS: ATTEND Pain Medicine Interventional Pain Medicine
DX: M51.16 Intervertebral disc disorders with radiculopathy, lumbar region (principal); M51.17 Intervertebral disc disorders with radiculopathy, lumbosacral region; M51.36 Other intervertebral disc degeneration, lumbar region; M51.37 Other intervertebral disc degeneration, lumbosacral region; M50.121 Cervical disc disorder at C4-C5 level with radiculopathy; M48.02 Spinal stenosis, cervical region; M50.31 Other cervical disc degeneration, high cervical region; M50.321 Other cervical disc degeneration at C4-C5 level; M50.322 Other cervical disc degeneration at C5-C6 level; M50.323 Other cervical disc degeneration at C6-C7 level; M50.33 Other cervical disc degeneration, cervicothoracic region; M47.892 Other spondylosis, cervical region; M47.812 Spondylosis without myelopathy or radiculopathy, cervical region; M47.813 Spondylosis without myelopathy or radiculopathy, cervicothoracic region; M96.1 Postlaminectomy syndrome, not elsewhere classified; M51.34 Other intervertebral disc degeneration, thoracic region; M51.35 Other intervertebral disc degeneration, thoracolumbar region; G58.0 Intercostal neuropathy

== ENCOUNTER 2021-10-24 10:09 | Inpatient (IN) ==
[2021-10-24 12:23] VITALS: BMI 29.5
[2021-10-24] MEDS ORDERED: VENOFER IV ONE (13:07)
[2021-10-24] MEDS ORDERED: SODIUM CHLORIDE IV ONE (13:07)
[2021-10-24] MEDS ORDERED: INJECTAFER 750 MG in SODIUM CHLORIDE 100ML 100 ML IV ONE (13:30)
[2021-10-24 13:53] LABS: BASOPHILS # (AUTO) 0.1 K/uL (0-0.2); BASOPHILS % (AUTO) 0.6 % (0.0-3.0); EOSINOPHILS # (AUTO) 0.4 K/ul (0.0-0.7); EOSINOPHILS % (AUTO) 3.7 % (0.0-7.0); HEMATOCRIT 25.8 % (37.0-47.0); HEMOGLOBIN 7.4 g/dl (12.0-16.0); IMMATURE GRANULOCYTE % (AUTO) 0.3 % (0.0-5.0); LYMPHOCYTES # (AUTO) 1.3 K/uL (0.60-3.4); LYMPHOCYTES % (AUTO) 13.9 (10.0-50.0); MEAN CORPUSCULAR HEMOGLOBIN 24.3 pg (27.0-31.0); MEAN CORPUSCULAR HGB CONC 28.7 (31.8-35.4); MEAN CORPUSCULAR VOLUME 84.9 fl (81.0-99.0); MONOCYTES # (AUTO) 1.6 K/uL (0.4-2.0); MONOCYTES % (AUTO) 16.2 (0-10); NEUTROPHILS # (AUTO) 6.3 K/ul (2.0-6.9); NEUTROPHILS % (AUTO) 65.3 % (42.2-75.2); PLATELET COUNT 272 10^3/uL (140-440); RDW COEFFICIENT OF VARIATION 20.2 % (11.6-14.8); RED BLOOD COUNT 3.04 10^6/ul (4.20-5.40); WHITE BLOOD COUNT 9.64 K/ul (4.6-10.2)
[2021-10-24 14:03] LABS: HYPOCHROMASIA 2+ (NOT PRESENT); POIKILOCYTOSIS 1+ (NOT PRESENT)
[2021-10-24 14:04] LABS: ANISOCYTOSIS 1+ (NOT PRESENT)
[2021-10-24] MEDS: NORCO 7.5-325 PO SCH ×2 (14:47→20:43)
[2021-10-24] MEDS: NEURONTIN PO SCH ×2 (14:47→20:43)
[2021-10-24 20:17] LABS: HEMATOCRIT 27.9 % (37.0-47.0); HEMOGLOBIN 8.2 g/dl (12.0-16.0)
[2021-10-24] MEDS: ELAVIL PO SCH (20:42)
[2021-10-24] MEDS: LIPITOR PO SCH (20:42)
[2021-10-24] MEDS: CORDARONE PO SCH (20:42)
[2021-10-25] MEDS: LASIX TAB PO SCH (06:40)
[2021-10-25] MEDS: SYNTHROID PO SCH (06:40)
[2021-10-25 06:44] LABS: BASOPHILS # (AUTO) 0.1 K/uL (0-0.2); BASOPHILS % (AUTO) 0.9 % (0.0-3.0); EOSINOPHILS # (AUTO) 0.4 K/ul (0.0-0.7); EOSINOPHILS % (AUTO) 5.2 % (0.0-7.0); HEMATOCRIT 29.6 % (37.0-47.0); HEMOGLOBIN 8.7 g/dl (12.0-16.0); IMMATURE GRANULOCYTE # (AUTO) 0.1 (0.0-1.0); IMMATURE GRANULOCYTE % (AUTO) 0.6 % (0.0-5.0); LYMPHOCYTES # (AUTO) 1.3 K/uL (0.60-3.4); LYMPHOCYTES % (AUTO) 16.2 (10.0-50.0); MEAN CORPUSCULAR HEMOGLOBIN 24.9 pg (27.0-31.0); MEAN CORPUSCULAR HGB CONC 29.4 (31.8-35.4); MEAN CORPUSCULAR VOLUME 84.8 fl (81.0-99.0); MONOCYTES # (AUTO) 1.1 K/uL (0.4-2.0); MONOCYTES % (AUTO) 12.9 (0-10); NEUTROPHILS # (AUTO) 5.3 K/ul (2.0-6.9); NEUTROPHILS % (AUTO) 64.2 % (42.2-75.2); PLATELET COUNT 262 10^3/uL (140-440); RDW COEFFICIENT OF VARIATION 19.4 % (11.6-14.8); RED BLOOD COUNT 3.49 10^6/ul (4.20-5.40); WHITE BLOOD COUNT 8.22 K/ul (4.6-10.2)
[2021-10-25 06:54] LABS: ALANINE AMINOTRANSFERASE 166.5 U/L (0-35); ALBUMIN 3.45 g/dL (3.5-5.0); ALKALINE PHOSPHATASE 136.2 U/L (53-141); ASPARTATE AMINO TRANSFERASE 131.3 U/L (14-36); BILIRUBIN,TOTAL 1.97 mg/dL (0.2-1.3); BLOOD UREA NITROGEN 16.8 mg/dL (7-17); CALCIUM 8.41 mg/dL (8.4-10.2); CARBON DIOXIDE 26.6 mmol/L (22-30.0); CHLORIDE 103.8 mmol/L (98-107); CREATININE 0.86 mg/dL (0.60-1.30); GLUCOSE 90.3 mg/dL (74-106); POTASSIUM 3.81 mmol/L (3.5-5.1); SODIUM 137.8 mmol/L (134.5-145); TOTAL PROTEIN 7.46 g/dL (6.3-8.2)
[2021-10-25] MEDS ORDERED: NON-FORMULARY MEDICATION (Aspirin 81 mg Tablet) PO SCH (09:00)
[2021-10-25] MEDS: ASPIRIN EC PO SCH (09:08)
[2021-10-25] MEDS: NEURONTIN PO SCH ×3 (09:09→21:02)
[2021-10-25] MEDS: PROZAC PO SCH (09:09)
[2021-10-25] MEDS: CORDARONE PO SCH ×2 (09:09→21:02)
[2021-10-25] MEDS: INDERAL PO SCH ×2 (09:10→21:00)
[2021-10-25] MEDS: MICRO-K CAP PO SCH (09:12)
[2021-10-25] MEDS: NORCO 7.5-325 PO SCH (09:12)
[2021-10-25] MEDS: NORCO 7.5-325 PO PRN ×2 (14:25→21:06)
[2021-10-25] MEDS: LIPITOR PO SCH (21:02)
[2021-10-25] MEDS: ELAVIL PO SCH (21:02)
[2021-10-25] MEDS: MIRALAX PO SCH (21:09)
[2021-10-26] MEDS: LASIX TAB PO SCH (05:40)
[2021-10-26] MEDS: SYNTHROID PO SCH (05:40)
[2021-10-26 06:39] LABS: BASOPHILS # (AUTO) 0.1 K/uL (0-0.2); BASOPHILS % (AUTO) 0.6 % (0.0-3.0); EOSINOPHILS # (AUTO) 0.4 K/ul (0.0-0.7); EOSINOPHILS % (AUTO) 3.3 % (0.0-7.0); HEMATOCRIT 32.5 % (37.0-47.0); HEMOGLOBIN 9.5 g/dl (12.0-16.0); IMMATURE GRANULOCYTE # (AUTO) 0.1 (0.0-1.0); IMMATURE GRANULOCYTE % (AUTO) 0.6 % (0.0-5.0); LYMPHOCYTES # (AUTO) 0.8 K/uL (0.60-3.4); LYMPHOCYTES % (AUTO) 6.6 (10.0-50.0); MEAN CORPUSCULAR HEMOGLOBIN 24.8 pg (27.0-31.0); MEAN CORPUSCULAR HGB CONC 29.2 (31.8-35.4); MEAN CORPUSCULAR VOLUME 84.9 fl (81.0-99.0); MONOCYTES # (AUTO) 1.4 K/uL (0.4-2.0); MONOCYTES % (AUTO) 11.8 (0-10); NEUTROPHILS # (AUTO) 9.2 K/ul (2.0-6.9); NEUTROPHILS % (AUTO) 77.1 % (42.2-75.2); PLATELET COUNT 313 10^3/uL (140-440); RED BLOOD COUNT 3.83 10^6/ul (4.20-5.40); WHITE BLOOD COUNT 11.92 K/ul (4.6-10.2)
[2021-10-26 06:44] LABS: ALANINE AMINOTRANSFERASE 140.3 U/L (0-35); ALBUMIN 3.56 g/dL (3.5-5.0); ALKALINE PHOSPHATASE 147.2 U/L (53-141); ASPARTATE AMINO TRANSFERASE 105.3 U/L (14-36); BILIRUBIN,TOTAL 2.35 mg/dL (0.2-1.3); BLOOD UREA NITROGEN 10.8 mg/dL (7-17); CALCIUM 8.69 mg/dL (8.4-10.2); CARBON DIOXIDE 28.4 mmol/L (22-30.0); CREATININE 0.72 mg/dL (0.60-1.30); GLUCOSE 92.9 mg/dL (74-106); POTASSIUM 3.86 mmol/L (3.5-5.1); SODIUM 136.8 mmol/L (134.5-145); TOTAL PROTEIN 7.66 g/dL (6.3-8.2)
[2021-10-26] MEDS: INDERAL PO SCH ×2 (08:45→20:45)
[2021-10-26] MEDS: ASPIRIN EC PO SCH (08:45)
[2021-10-26] MEDS: NEURONTIN PO SCH ×3 (08:46→20:46)
[2021-10-26] MEDS: CORDARONE PO SCH ×2 (08:46→20:46)
[2021-10-26] MEDS: MICRO-K CAP PO SCH (08:46)
[2021-10-26] MEDS: PROZAC PO SCH (08:46)
[2021-10-26] MEDS: NORCO 7.5-325 PO PRN ×2 (08:59→20:46)
[2021-10-26] MEDS: LOVENOX SUBCUT SCH (16:41)
[2021-10-26] MEDS: LIPITOR PO SCH (20:45)
[2021-10-26] MEDS: ELAVIL PO SCH (20:46)
[2021-10-26] MEDS: MIRALAX PO SCH (20:47)
[2021-10-27 05:11] VITALS: BP 110/67; TEMP 97.4
[2021-10-27 05:33] LABS: BASOPHILS # (AUTO) 0.1 K/uL (0-0.2); BASOPHILS % (AUTO) 0.6 % (0.0-3.0); EOSINOPHILS # (AUTO) 0.4 K/ul (0.0-0.7); HEMATOCRIT 31.6 % (37.0-47.0); HEMOGLOBIN 9.2 g/dl (12.0-16.0); IMMATURE GRANULOCYTE # (AUTO) 0.1 (0.0-1.0); IMMATURE GRANULOCYTE % (AUTO) 0.6 % (0.0-5.0); LYMPHOCYTES # (AUTO) 1.1 K/uL (0.60-3.4); LYMPHOCYTES % (AUTO) 8.3 (10.0-50.0); MEAN CORPUSCULAR HEMOGLOBIN 25.1 pg (27.0-31.0); MEAN CORPUSCULAR HGB CONC 29.1 (31.8-35.4); MEAN CORPUSCULAR VOLUME 86.3 fl (81.0-99.0); MONOCYTES # (AUTO) 1.8 K/uL (0.4-2.0); MONOCYTES % (AUTO) 13.4 (0-10); NEUTROPHILS # (AUTO) 9.8 K/ul (2.0-6.9); NEUTROPHILS % (AUTO) 74.1 % (42.2-75.2); PLATELET COUNT 307 10^3/uL (140-440); RDW COEFFICIENT OF VARIATION 20.8 % (11.6-14.8); RED BLOOD COUNT 3.66 10^6/ul (4.20-5.40); WHITE BLOOD COUNT 13.18 K/ul (4.6-10.2)
[2021-10-27] MEDS: SYNTHROID PO SCH (05:45)
[2021-10-27] MEDS: LASIX TAB PO SCH (05:45)
[2021-10-27 05:48] LABS: ALANINE AMINOTRANSFERASE 110.4 U/L (0-35); ALBUMIN 3.46 g/dL (3.5-5.0); ALKALINE PHOSPHATASE 149.5 U/L (53-141); ASPARTATE AMINO TRANSFERASE 72.9 U/L (14-36); BILIRUBIN,TOTAL 1.64 mg/dL (0.2-1.3); BLOOD UREA NITROGEN 11.6 mg/dL (7-17); CALCIUM 8.54 mg/dL (8.4-10.2); CARBON DIOXIDE 31.9 mmol/L (22-30.0); CHLORIDE 100.9 mmol/L (98-107); CREATININE 0.74 mg/dL (0.60-1.30); GLUCOSE 129.7 mg/dL (74-106); POTASSIUM 3.77 mmol/L (3.5-5.1); SODIUM 138.3 mmol/L (134.5-145); TOTAL PROTEIN 7.46 g/dL (6.3-8.2)
[2021-10-27] MEDS: MICRO-K CAP PO SCH (09:07)
[2021-10-27] MEDS: ASPIRIN EC PO SCH (09:07)
[2021-10-27] MEDS: NEURONTIN PO SCH (09:07)
[2021-10-27] MEDS: INDERAL PO SCH (09:07)
[2021-10-27] MEDS: CORDARONE PO SCH (09:08)
[2021-10-27] MEDS: PROZAC PO SCH (09:08)
[2021-10-27] MEDS: LOVENOX SUBCUT SCH (09:08)
--- NOTE | 2021-10-27 11:20 | RS.OTINEVL ---
Subjective - Patient information Date of Evaluation: 10/27/21 Date of Arrival on Unit: 10/24/21 Admitted From:: Home Diagnosis: Anemia, Falls, Fatigue PRECAUTIONS: R TKA is swollen and painful. Usual Living Arrangement: With Spouse Living Arrangement Comments: Lives at home with her . 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 Pt uses a RW to ambulate. Pt is having pain in Right knee when bearing weight on Right LE. Interventions - ROM Right Upper Extremity AROM: Slight limitation Left Upper Extremity AROM: Slight limitation - Strength Right Upper Extremity Strength: Mild Weakness Left Upper Extremity Strength: Mild Weakness - Sensation Right Upper Extremity Sensation: Intact/Normal Left Upper Extremity Sensation: Intact/Normal Balance - Sitting Balance Static Sitting Balance: Good Dynamic Sitting Balance: Good - Standing Balance Static Standing Balance: Poor Dynamic Standing Balance: Poor ADL Skills - Self Feeding Self Feeding: Independent - Grooming Grooming: Min Assist Grooming Set-up: Sitting - Bathing Bathing UE: Set Up Only Bathing LE: Min Assist - Dressing Dressing UE: Independent Dressing LE: Min Assist - Toilet Management Toilet Hygiene: CGA Toilet Clothing Management: CGA Functional Mobility - Bed Mobility Supine to Sit: CGA - Transfers Sit to Stand: CGA Stand to Sit: CGA Stand Pivot Transfers: CGA IRVING INDEX SCORE: . Additional Treatment Performed - Time with patient Length of Evaluation: 18 Total treatment time: 18 Activities Would you be interested in leaving your room for activities?: Yes Would you enjoy group activities?: Yes Do you have difficulty with your vision?: Yes Patient Interests:: Watching Television, Visiting/Socializing Patient Education Patient Education: Education of diagnosis, Education of Plan of Care Teaching Recipient: Patient Teaching Methods: Discussion, Demonstration Assessment Problem List:: Decreased level of function, Requires training/education, Decreased safety/Risk of falls Further Therapy Indicated?: Yes Evaluation Complexity: HISTORY: Medium, EXAM OF BODY SYSTEMS: Medium, CLINICAL DECISION MAKING: Medium Patient's Goal(s): To be able to return home and take care of herself. Short Term Goals - Goals GOAL 1: Pt to increase BUE strength to 4/5. Goal to be met by: 10/30/21 GOAL 2: Pt to increase to Mod -I at sink level ADLS. Goal to be met by: 10/30/21 GOAL 3: Pt to increase dyn. std. bal. to Fair+. Goal to be met by: 10/30/21 Banquet Chef Goals GOAL 1: Pt to increase BUE strength to 4+/5. Goal to be met by: 11/01/21 GOAL 2: Pt to be I with ADLS. Goal to be met by: 11/01/21 GOAL 3: Pt to increase dyn. std. bal. to G-. Goal to be met by: 11/01/21 Plan Plan of Care: Therapeutic EX, Therapeutic Activity, Self-Care/Home Management Frequency of Treatment: 1-2 X day, as tolerated Duration of Treatment: 1 Week Anticipated Discharge Destination: Home Treatment Diagnosis (ICD 10 Codes): Weakness M62.81, Z74.1 Need for assistance with personal care. Has the Physician been added for Co-signature?: Yes
--- NOTE | 2021-10-27 11:28 | RS.PTINEVL ---
Subjective - Patient information Date of Evaluation: 10/27/21 Date of Arrival on Unit: 10/24/21 Admitted From:: Home Diagnosis: anemia, weakness, frequent falls. Usual Living Arrangement: With Spouse Home Environment: House, Stairs (few), Rail Medical History: Hypertension, Arthritis Medical History Comments:: afib, low back pain, anxiety, intention tremor, thyroid disorder. LATEX ALLERGY?: Yes Surgical History: Cervical Spine Surgical History Comments:: cardiac ablation Medications: see chart Subjective Information/ Patient Comments:: pt states that she has fallen 6 times in the last 2 weeks. She reported that she was seen at [facility] and given 1 unit of blood and sent home. Mrs. Dalton reported that on one of her falls she landed on her R knee and has had pain and increased swelling since the fall. - Level of function Abilities prior to this admission: Prior to 2 weeks ago pt was independent with all ADL's, amb without AD, independent with housework, cooking etc. Current Level of Function: Partially Dependent Current Equipment Used at Home: Wheelchair, Shower Chair Pain Assessement - Location R knee Description: Sharp, Aching Intensity: 4 Pain Behavior: Guarding, Rubbing Site, Facial Grimacing Pain Aggravating Factors: Changing Position, Standing, Walking Pain Alleviating Factors: Ice, Medication Effects of Pain: pt states that it hurts initially with weight bearing but it gets better Interventions - Objective Patient Orientation: Person, Place, Time, Situation Current Interventions: Oxygen (2liters), Telemetry Observation: pt with pitting edema BLE. Range of Motion - ROM Right Upper Extremity AROM: WFL's Left Upper Extremity AROM: WFL's Right Lower Extremity AROM: Slight limitation (R knee ROM decreased flex due to pain) Left Lower Extremity AROM: WFL's Muscle Strength - Muscle Strength Right Upper Extremity Strength: Mild Weakness (grossly 4/5) Left Upper Extremity Strength: Mild Weakness (grossly 4/5) Right Lower Extremity Strength: Mild Weakness (hip flex 4-/5, knee flex/ext 3/5, ankle DF/PF 4/5) Left Lower Extremity Strength: Mild Weakness (hip flex 4/5, knee flex/ext 4/5, ankle DF/PF 4/5) Sensation - Sensation Right Upper Extremity Sensation: Intact/Normal Left Upper Extremity Sensation: Intact/Normal Right Lower Extremity Sensation: Impaired (n/t lateral knee) Left Lower Extremity Sensation: Intact/Normal Palpation Palpation Findings: Tenderness (tenderness to palpation R knee ) Balance - Sitting Balance and Reactions Static Sitting Balance: Good Dynamic Sitting Balance: Fair (fair+) - Standing Balance and Reactions Static Standing Balance: Poor Dynamic Standing Balance: Poor Standing Equilibrium Reactions: Delayed Left, Delayed Right Standing Protective Reactions: Delayed Left, Delayed Right Functional Mobility - Bed Mobility Rolling R/L: Supervision Supine to Sit: Supervision Sit to Supine: CGA - Transfers Sit to Stand: CGA Stand to Sit: CGA Stand Pivot Transfers: CGA - Safety Awareness Safety Awareness: Good IRVING INDEX SCORE: n/a Ambulation - Ambulation Assistive Device Used: Rolling Walker Orthotic/Prosthetic Device: No Distance: 100ft Assistance needed with Ambulation: CGA Quality of Ambulation: with O2 Gait Deviations: Forward posture, Short stride Ambulation Comments: pt amb with flexed posture, decreased step length, slight antalgic gait pattern Factors Affecting Ambulation: Decreased Balance, Pain, Weakness, Decreased Coordination, Limited Endurance Treatment time - Time with patient Length of Evaluation: 19 Total treatment time: 31 Patient Education - Education Patient Education: Education of diagnosis, Activity Modification, Education of Plan of Care Teaching Recipient: Patient Teaching Methods: Discussion, Demonstration Comments: discussion regarding dc plans as well as POC Assessment - Assessment Problem List:: Decreased level of function, Requires training/education, Decreased safety/Risk of falls, Weakness, Pain limits previous level of function Rehab Potential: Good Further Therapy Indicated?: Yes Candidate for Swing Bed for Therapy Services?: Feel pt may be a candidate for swing bed for therapy short term or home with home health PT for balance and strengthening to improve home safety. Evaluation Complexity: HISTORY: Medium, EXAM OF BODY SYSTEMS: Medium, CLINICAL PRESENTATION: Medium, CLINICAL DECISION MAKING: Medium Patient's Goal(s): Go back home as independent as possible. Short Term Goals GOAL #1: pt independent with rolling/scooting and bridging. Goal to be met by: 10/29/21 GOAL #2: Transfer sup to/from sit independently. Goal to be met by: 10/29/21 GOAL #3: Transfer sit to/from stand SBA Goal to be met by: 10/29/21 GOAL #4: pt amb with rwx 140ft with CGA to SBA no LOB. Goal to be met by: 10/29/21 GOAL #5: Improve strength R knee 4/5 Goal to be met by: 10/29/21 Assisted Goals GOAL #1: pt transfer sit to/from stand independently Goal to be met by: 10/31/21 GOAL #2: pt amb with rwx functional distances SBA Goal to be met by: 10/31/21 GOAL #3: pt ascend/descend 2 steps with HR CGA Goal to be met by: 10/31/21 Plan Plan of Care: Therapeutic EX, Therapeutic Activity Other:: gait training Frequency of Treatment: 1-2 X day, as tolerated Duration of Treatment: 5days Anticipated Discharge Destination: home w hh vs swing Treatment Diagnosis (ICD 10 Codes): difficulty walking R 26.2. balance impaired R 26.81. weakness M62.81. falls z91.81 Has the Physician been added for Co-signature?: Yes
--- NOTE | 2021-10-27 13:26 | RS.SLPCNOT ---
Speech Case Note Date of Note: 10/27/21 Title: Speech Consult Note: CANS VACUUM TESTER acknowledged speech consult date as 10/24/21 with RN, however CANS VACUUM TESTER has been out of the building. RN reported that pt is to begin swing bed program this date. No recommendations for speech therapy were identified upon questioning. CANS VACUUM TESTER discussed need for speech, swallow, or cognition evaluation/tx, and the RN reported no need for ST evaluation at this time. Thank you for this consult.
== END 2021-10-27 13:17 | disposition swing bed (61) | DRG 204 ==
LOC: LAB 10:09 → MEDSURG A 11:19
PROVIDERS: ADMIT Family Medicine; ATTEND Family Medicine
DX: Z20.822 Contact with and (suspected) exposure to COVID-19; D64.9 Anemia, unspecified; E03.9 Hypothyroidism, unspecified; I10 Essential (primary) hypertension; I49.9 Cardiac arrhythmia, unspecified; R55 Syncope and collapse; R26.2 Difficulty in walking, not elsewhere classified; Z79.899 Other long term (current) drug therapy; M25.561 Pain in right knee; K21.9 Gastro-esophageal reflux disease without esophagitis; Z74.1 Need for assistance with personal care; Z51.81 Encounter for therapeutic drug level monitoring; M62.81 Muscle weakness (generalized); E11.9 Type 2 diabetes mellitus without complications; I50.9 Heart failure, unspecified; S89.91XA Unspecified injury of right lower leg, initial encounter; E78.5 Hyperlipidemia, unspecified; Z91.81 History of falling; R06.02 Shortness of breath

== ENCOUNTER 2022-05-13 20:39 | Inpatient (IN) ==
[2022-05-13] MEDS ORDERED: SODIUM CHLORIDE 1,000 ML IV STA (20:52)
[2022-05-13] MEDS ORDERED: ADENOCARD IVP STA (21:05)
[2022-05-13] MEDS ORDERED: ADENOCARD IVP ONE (21:05)
[2022-05-13 21:32] LABS: SARS COV-2 RNA RAPID NAAT NEGATIVE (NEGATIVE)
--- NOTE | 2022-05-13 21:33 | ED.PDOC ---
General ED Provider: Dr. CARINE HANSEN Chief Complaint: Syncope Stated Complaint: Patient is a 76 yea misheld who comes in by PCV after sustaining 3 syncopal episodes at home since this morning. EMS was called but declined to come the hospital She is severely orthostatic. States that she hit her head and her chest and has severe pain on the chest. Time Seen by Provider: 05/13/22 20:52 Mode of Arrival: Wheelchair Information Source: Patient Primary Care Provider: JONATHAN VINCENT Nursing and Triage Documentation Reviewed and Agree: Yes Does patient meet sepsis criteria?: No System Inflammatory Response Syndrome: Not Applicable Sepsis Protocol: For patient's 13 years and over: Temp is 96.8 and below OR 101 and greater Pulse >90 BPM Resp >20/minute Acutely Altered Mental Status Are patient's symptoms suggestive of a new infection, such as: -Pneumonia -Skin, Soft Tissue -Endocarditis -UTI -Bone, Joint Infection -Implantable Device -Acute Abdominal Infection -Wound Infection -Meningitis -Blood Stream Catheter Infection -Unknown Cardiovascular Complaint Exam Chest Pain Complaint/Exam Onset: Sudden Duration: 1 day Symptoms Are: Still present Timing: Constant Initial Severity: Severe Current Severity: Moderate Location: Reports Midsternal Pain Radiates: Reports None Character: Reports Aching and Pressure Aggravating: Reports Movement and Deep breaths Alleviating: Reports None Associated Signs and Symptoms: Denies Diaphoresis, Nausea, Vomiting, Fever, Palpitations, Cough, Hemoptysis, Back pain, Abdominal pain, Dizziness, Short of air, Calf pain or Calf swelling Prior Care for this Complaint: No Recent Stress Test: No Recent Echo/LV Function: No JVD Present: No Subcutaneous Emphysema Present: No Diminshed Breath Sounds: No Reproducible Chest Wall Pain: Yes Bilateral Pulses Present: No Unequal Pulses Noted: No If Risk Factors for AMI/ACS Consider: EKG, Cardiac Enzymes and Oxygen Quality Indicators For Acute CA or Cardiac Chest Pain: EKG in 10min. Quality Indicator For Non-Traumatic Chest Pain/Syncope: EKG Performed Review of Systems Review Of Systems Constitutional: Reports No symptoms Eyes: Reports No symptoms Ears, Nose, Mouth, Throat: Denies Epistaxis Respiratory: Reports No symptoms Cardiac: Reports Chest pain Skin: Reports Bruising (right face ) Neurological: Reports Anxiety All Other Systems: Reviewed and Negative [facility] Medical History (Updated 05/13/22 @ 21:29 by CARINE HANSEN MD) Anxiety Atrial fibrillation Intention tremor Thyroid disorder Family History Mother Atrial fibrillation PATERNAL GRANDFATHER Detached retina BROTHER Intention tremor Cancer Social History Smoking and tobacco status: Never smoker Surgical History (Updated 05/13/22 @ 21:29 by CARINE HANSEN MD) Presence of Watchman left atrial appendage closure device Female Reproductive History Menstrual Hx Hysterectomy: Yes Physical Exam Physical Exam Appearance: Reports Well-appearing Ill-appearing: None Pain Distress: Moderate Eyes: Reports GABRIELLE, EOMI and Conjunctiva clear ENT: Reports Nose normal and Oropharynx normal Neck: Supple Respiratory: Reports Airway patent and Breath sounds clear Cardiovascular: Reports Tachycardia and Murmur GI/: Reports Soft and Nontender Musculoskeletal: Reports Normal strength and ROM intact Skin: Reports Warm, Dry and Normal color Neurological: Reports Motor intact, Alert and Oriented Psychiatric: Reports Anxious Interpretation Radiology Interpretation Radiology Interpretation By: Radiologist Radiology Results: Negative Exam Interpreted: CT Scan Radiology Interpretation By: Radiologist Radiology Results: Negative Exam Interpreted: CT Scan Naval Architect Time of Naval Architect Interpretation: 20:50 Rate: Tachy Rhythm: Other (SVT) EKG Interpretation Time of EKG #1: 20:50 Rate: Tachy Rhythm: Other (SVT) Ectopy: None [place]: NL Interpretation: SVT Time of EKG #2: 22:16 Rate: Normal Rhythm: Sinus Ectopy: PVCs [place]: NL EKG Interpretation: NSR with PVCS Critical Care Note Critical Care Note Total Critical Care Time (mins): 30 Comments: attempted to Cardiovert with carotid massage but did not respond then tired Adenosine 6 mg and then 12 mg with no sustained normal rhythm bounced back to SVT with both doses after few seconds of Bradycardia. Course Course Hematology/Chemistry: 05/13/22 22:00 05/13/22 22:00 Orders, Labs, Meds: Lab Review 05/13/22 05/13/22 05/13/22 20:54 22:00 22:00 WBC 11.34 H RBC 3.89 L Hgb 13.3 Hct 40.0 MCV 102.8 H MCH 34.2 H MCHC 33.3 RDW Coeff of Bernardo 13.7 Plt Count 201 Immature Gran % (Auto) 0.3 Neut % (Auto) 80.3 H Lymph % (Auto) 8.3 L [place] % (Auto) 10.3 H Eos % (Auto) 0.4 Baso % (Auto) 0.4 Neut # (Auto) 9.1 H Lymph # (Auto) 0.9 [place] # (Auto) 1.2 Eos # (Auto) 0.0 Baso # (Auto) 0.0 Immature Gran # (Auto) 0.0 Sodium 141.3 Potassium 4.18 Chloride 106.3 Carbon Dioxide 29.0 Anion Gap 10.18 BUN 17.4 H Creatinine 0.86 Estimated GFR (MDRD) 64.00 BUN/Creatinine Ratio 20.23 Glucose 112.7 H Calcium 8.86 Total Bilirubin 0.47 AST 48.6 H ALT 42.8 H Alkaline Phosphatase 86.5 Total Creatine Kinase 29.3 L Troponin I 0.028 NT-Pro-B Natriuret Pep 4480.000 H Total Protein 7.16 Albumin 3.82 Globulin 3.34 Albumin/Globulin Ratio 1.14 SARS CoV-2 RNA Rapid MAKAYLA Negative Orders Category Date Time Status PLACE PATIENT OBSERVATION .TO MEDSURG (MONITORED BED ADMISSION 05/13/22 22:37 Active ) EKG-(ED ONLY) Stat CARDIO 05/13/22 20:52 Ordered EKG-(ED ONLY) Stat CARDIO 05/13/22 22:23 Ordered OXYGEN Routine CARDIO 05/13/22 22:37 Ordered INTAKE & OUTPUT Q8HR CARE 05/13/22 22:37 Active TELEMETRY MONITORING TELE CARE 05/13/22 22:37 Active VITAL SIGNS Q4HR CARE 05/13/22 22:38 Active CARDIAC DIET DIETARY 05/13/22 Breakfast Ordered BASIC METABOLIC PANEL DAILY@0600 LAB 05/14/22 06:00 Ordered BASIC METABOLIC PANEL DAILY@0600 LAB 05/15/22 06:00 Ordered CBC W/ AUTO DIFF DAILY@0600 LAB 05/14/22 06:00 Ordered CBC W/ AUTO DIFF DAILY@0600 LAB 05/15/22 06:00 Ordered CBC W/ AUTO DIFF Stat LAB 05/13/22 22:00 Completed COMPREHENSIVE METABOLIC PANEL Stat LAB 05/13/22 22:00 Completed CREATINE KINASE Q8H LAB 05/14/22 04:45 Ordered CREATINE KINASE Q8H LAB 05/14/22 12:45 Ordered CREATINE KINASE Stat LAB 05/13/22 22:00 Completed NT-PROBNP Stat LAB 05/13/22 22:00 Completed SARS COV-2 RNA RAPID MAKAYLA Stat LAB 05/13/22 20:54 Completed TROPONIN I Q8H LAB 05/14/22 04:45 Ordered TROPONIN I Q8H LAB 05/14/22 12:45 Ordered TROPONIN I Stat LAB 05/13/22 22:00 Completed Acetaminophen [Tylenol] MEDS 05/13/22 22:37 Active 650 mg PO Q4H PRN Adenosine [Adenocard] MEDS 05/13/22 21:05 Discontinued 12 mg IVP ONCE ONE Adenosine [Adenocard] MEDS 05/13/22 21:05 Discontinued 6 mg IVP ONCE STA Diltiazem HCl [Cardizem Inj] MEDS 05/13/22 21:51 Discontinued 15 mg IVP ONCE ONE Diltiazem HCl [Cardizem] 125 mg MEDS 05/13/22 23:00 Active 0.9 % Sodium Chloride [Sodium Chloride 100Ml] 100 ml IV TITRATION Enoxaparin Sodium [Lovenox] MEDS 05/14/22 09:00 Active 40 mg SUBCUT DAILY Ondansetron HCl/Pf [Zofran 4 mg/2 ml] MEDS 05/13/22 22:37 Active 4 mg IVP Q6H PRN Sodium Chloride 0.9% [Sodium Chloride] 1,000 ml MEDS 05/13/22 23:00 Active IV 65 mls/hr Sodium Chloride 0.9% [Sodium Chloride] 1,000 ml MEDS 05/13/22 20:52 Discontinued IV BOLUS RESUSCITATION STATUS Routine OTHERS 05/13/22 22:[address] ABDOMEN/PELVIS WO CONTRAST Stat RADS 05/13/22 20:[address] CERVICAL SPINE W/O CONTRAST Stat RADS 05/13/22 20:[address] CHEST W/O CONTRAST Stat RADS 05/13/22 20:[address] HEAD W/O CONTRAST Stat RADS 05/13/22 20:52 Completed Medications Generic Name Dose Route Start Last Admin Trade Name Freq PRN Reason Stop Dose Admin Acetaminophen 650 mg 05/13/22 22:37 Acetaminophen 325 Mg Tablet PO Q4H PRN Fever and Mild Pain Enoxaparin Sodium 40 mg 05/14/22 09:00 Enoxaparin Sodium 40 Mg/0.4 Ml Syr SUBCUT DAILY ROSAURA Sodium Chloride 1,000 mls @ 65 mls/hr 05/13/22 23:00 05/14/22 00:19 Sodium Chloride IV 65 mls/hr .[id number] ROSAURA Administration Diltiazem HCl 125 mg/ Sodium 125 mls @ 5 mls/hr 05/13/22 23:00 05/13/22 23:26 Chloride IV 7.5 mg/hr TITRATION ROSAURA 7.5 mls/hr Titration Protocol 5 MG/HR Ondansetron HCl 4 mg 05/13/22 22:37 Ondansetron Hcl/Pf 4 Mg/2 Ml Sdv IVP Q6H PRN Nausea / Vomiting Discontinued Medications Generic Name Dose Route Start Last Admin Trade Name Freq PRN Reason Stop Dose Admin Adenosine 6 mg 05/13/22 21:05 05/13/22 21:13 Adenosine 12 Mg/4 Ml Vial IVP 05/13/22 21:06 6 mg ONCE STA Administration Adenosine 12 mg 05/13/22 21:05 05/13/22 21:16 Adenosine 12 Mg/4 Ml Vial IVP 05/13/22 21:06 12 mg ONCE ONE Administration Diltiazem HCl 15 mg 05/13/22 21:51 05/13/22 22:09 Diltiazem Hcl Inj 25 Mg/5 Ml Vial IVP 05/13/22 21:52 15 mg ONCE ONE Administration Sodium Chloride 1,000 mls @ 1,000 mls/hr 05/13/22 20:52 05/13/22 21:20 Sodium Chloride IV 05/13/22 21:51 1,000 mls/hr BOLUS STA Administration Vital Signs: Temp Pulse Resp BP Pulse Ox 05/13/22 20:40 98.2 F 174 H 20 90/66 96 ROMAN Risk Score ROMAN Risk Score: Risk Score Odds of by 30D 0 0.1 (0.1-0.2) 1 0.3 (0.2-0.3) 2 0.4 (0.3-0.5) 3 0.7 (0.6-0.9) 4 1.2 (1.0-1.5) 5 2.2 (1.9-2.6) 6 3.0 (2.5-3.6) 7 4.8 (3.8-6.1) Discharge Plan Discharge Did you review [place] ORDER ANALYST for ALL controlled substances?: Not Applicable Discussed opioids are addictive and Narcan is available by prescription or from pharmacy.: No ED Provider: CARINE HANSEN Physician Progress Note: []
[2022-05-13] MEDS ORDERED: CARDIZEM INJ IVP ONE (21:51)
--- NOTE | 2022-05-13 21:56 | CT ---
EXAM: CT HEAD WITHOUT CONTRAST HISTORY: Head injury, syncope COMPARISON: 02/07/2022 TECHNIQUE: Serial axial images of the brain were obtained from the skull base to the vertex without IV contrast. FINDINGS: No acute intracranial hemorrhage. No hydrocephalus. No midline shift. Parenchymal volume loss. Chronic microangiopathy. The calvarium is intact. IMPRESSION: No acute intracranial abnormality. All CT scans are performed using dose optimization techniques as appropriate to the performed exam an d include at least one of the following: Automated exposure control, adjustment of the mA and/or kV according t o size, and the use of iterative reconstruction technique.
--- NOTE | 2022-05-13 21:56 | CT ---
CT CERVICAL SPINE WITHOUT CONTRAST HISTORY: Status post fall with neck pain TECHNIQUE: CT of the cervical spine with multiplanar reformations. FINDINGS: Reformatted images demonstrate normal alignment with preservation of vertebral body height . Prior fusion C4 - C6. No fracture seen on the axial or reformatted images. No acute surrounding soft tissue abnormalitites. Lung apices are clear. IMPRESSION: No acute findings in the cervical spine. All CT scans are performed using dose optimization techniques as appropriate to the performed exam an d include at least one of the following: Automated exposure control, adjustment of the mA and/or kV according t o size, and the use of iterative reconstruction technique.
[2022-05-13] MEDS ORDERED: CARDIZEM 125 MG in SODIUM CHLORIDE 100ML 100 ML IV SCH (22:00)
--- NOTE | 2022-05-13 22:04 | CT ---
EXAM: CT CHEST WITHOUT CONTRAST HISTORY: Trauma, pain and hypotension COMPARISON: CT chest from 05/27/2016 TECHNIQUE: Serial axial images of the chest were obtained from the lung apices to the upper abdomen without contrast. These were viewed in multiple planes. FINDINGS: Vascular calcifications. The heart is not enlarged. No pericardial effusion. Atrial appendage closure device. No mediastinal lymphadenopathy by CT size criteria. Mosaic attenuation in the lungs. Subpleural reticulations. No pleural effusion or pneumothorax. Superior endplate compression deformity at T4 is age indeterminate. No depressed sternal fracture. IMPRESSION: Age indeterminate superior endplate compression deformity at T4. Consider further evaluation with MR I examination if there is concern for acute injury. Otherwise, no acute traumatic injury to the chest. Please see above description and additional findings. All CT scans are performed using dose optimization techniques as appropriate to the performed exam an d include at least one of the following: Automated exposure control, adjustment of the mA and/or kV according t o size, and the use of iterative reconstruction technique.
[2022-05-13 22:05] LABS: BASOPHILS % (AUTO) 0.4 % (0.0-3.0); EOSINOPHILS % (AUTO) 0.4 % (0.0-7.0); HEMOGLOBIN 13.3 g/dl (12.0-16.0); IMMATURE GRANULOCYTE % (AUTO) 0.3 % (0.0-5.0); LYMPHOCYTES # (AUTO) 0.9 K/uL (0.60-3.4); LYMPHOCYTES % (AUTO) 8.3 (10.0-50.0); MEAN CORPUSCULAR HEMOGLOBIN 34.2 pg (27.0-31.0); MEAN CORPUSCULAR HGB CONC 33.3 (31.8-35.4); MEAN CORPUSCULAR VOLUME 102.8 fl (81.0-99.0); MONOCYTES # (AUTO) 1.2 K/uL (0.4-2.0); MONOCYTES % (AUTO) 10.3 (0-10); NEUTROPHILS # (AUTO) 9.1 K/ul (2.0-6.9); NEUTROPHILS % (AUTO) 80.3 % (42.2-75.2); PLATELET COUNT 201 10^3/uL (140-440); RDW COEFFICIENT OF VARIATION 13.7 % (11.6-14.8); RED BLOOD COUNT 3.89 10^6/ul (4.20-5.40); WHITE BLOOD COUNT 11.34 K/ul (4.6-10.2)
--- NOTE | 2022-05-13 22:06 | CT ---
EXAM: CT ABDOMEN PELVIS WITHOUT CONTRAST HISTORY: Trauma, abdominal pain COMPARISON: None. TECHNIQUE: Serial axial images of the abdomen pelvis were performed from the lung bases through the inferior pelvis without contrast. These were viewed in multiple planes. FINDINGS: No acute traumatic injury to the liver, pancreas or spleen. The gallbladder is removed. No acute process involving the kidneys or adrenal glands. No acute process involving the colon or small bowel. No acute process in the pelvis. Lumbar vertebral body heights are maintained. No discrete fracture line. Degenerative changes to the hips and pelvis. IMPRESSION: No acute traumatic injury to the abdomen or pelvis. Please see above description were All CT scans are performed using dose optimization techniques as appropriate to the performed exam an d include at least one of the following: Automated exposure control, adjustment of the mA and/or kV according t o size, and the use of iterative reconstruction technique.
[2022-05-13 22:17] LABS: ALANINE AMINOTRANSFERASE 42.8 U/L (0-35); ALBUMIN 3.82 g/dL (3.5-5.0); ALKALINE PHOSPHATASE 86.5 U/L (53-141); ASPARTATE AMINO TRANSFERASE 48.6 U/L (14-36); BILIRUBIN,TOTAL 0.47 mg/dL (0.2-1.3); BLOOD UREA NITROGEN 17.4 mg/dL (7-17); CALCIUM 8.86 mg/dL (8.4-10.2); CHLORIDE 106.3 mmol/L (98-107); CREATINE KINASE 29.3 U/L (30-135); CREATININE 0.86 mg/dL (0.60-1.30); GLUCOSE 112.7 mg/dL (74-106); POTASSIUM 4.18 mmol/L (3.5-5.1); SODIUM 141.3 mmol/L (134.5-145); TOTAL PROTEIN 7.16 g/dL (6.3-8.2)
[2022-05-13 22:28] LABS: TROPONIN I 0.028 ng/ml (0.0000-0.120)
[2022-05-13] MEDS ORDERED: ZOFRAN 4 MG/2 ML IVP PRN (22:37)
[2022-05-13] MEDS ORDERED: TYLENOL PO PRN (22:37)
[2022-05-13] MEDS: CARDIZEM 125 MG in SODIUM CHLORIDE 100ML 100 ML IV SCH (22:52)
[2022-05-14] MEDS: SODIUM CHLORIDE 1,000 ML IV SCH ×2 (00:19→16:56)
[2022-05-14 02:41] VITALS: BMI 21.8
[2022-05-14 05:09] LABS: BASOPHILS # (AUTO) 0.1 K/uL (0-0.2); BASOPHILS % (AUTO) 0.5 % (0.0-3.0); EOSINOPHILS # (AUTO) 0.1 K/ul (0.0-0.7); HEMATOCRIT 35.8 % (37.0-47.0); HEMOGLOBIN 11.6 g/dl (12.0-16.0); IMMATURE GRANULOCYTE % (AUTO) 0.4 % (0.0-5.0); LYMPHOCYTES # (AUTO) 1.2 K/uL (0.60-3.4); LYMPHOCYTES % (AUTO) 10.5 (10.0-50.0); MEAN CORPUSCULAR HEMOGLOBIN 33.5 pg (27.0-31.0); MEAN CORPUSCULAR HGB CONC 32.4 (31.8-35.4); MEAN CORPUSCULAR VOLUME 103.5 fl (81.0-99.0); MONOCYTES # (AUTO) 1.3 K/uL (0.4-2.0); MONOCYTES % (AUTO) 11.7 (0-10); NEUTROPHILS # (AUTO) 8.4 K/ul (2.0-6.9); NEUTROPHILS % (AUTO) 75.9 % (42.2-75.2); PLATELET COUNT 174 10^3/uL (140-440); RDW COEFFICIENT OF VARIATION 13.7 % (11.6-14.8); RED BLOOD COUNT 3.46 10^6/ul (4.20-5.40); WHITE BLOOD COUNT 11.02 K/ul (4.6-10.2)
[2022-05-14 05:20] LABS: BLOOD UREA NITROGEN 17.5 mg/dL (7-17); CALCIUM 8.85 mg/dL (8.4-10.2); CARBON DIOXIDE 29.8 mmol/L (22-30.0); CHLORIDE 107.3 mmol/L (98-107); CREATINE KINASE 31.4 U/L (30-135); CREATININE 0.72 mg/dL (0.60-1.30); GLUCOSE 128.3 mg/dL (74-106); POTASSIUM 3.95 mmol/L (3.5-5.1); SODIUM 140.9 mmol/L (134.5-145)
[2022-05-14 05:31] LABS: TROPONIN I 0.146 ng/ml (0.0000-0.120)
[2022-05-14] MEDS ORDERED: LASIX TAB PO SCH (06:30)
[2022-05-14] MEDS ORDERED: SYNTHROID PO SCH (06:30)
[2022-05-14] MEDS: PROZAC PO SCH (09:08)
[2022-05-14] MEDS: MYSOLINE PO SCH (09:09)
[2022-05-14] MEDS: MICRO-K CAP PO SCH ×3 (09:09→18:20)
[2022-05-14] MEDS: ASPIRIN EC PO SCH (09:10)
[2022-05-14] MEDS: LIPITOR PO SCH (09:10)
[2022-05-14] MEDS: LOVENOX SUBCUT SCH (09:11)
[2022-05-14] MEDS: NEURONTIN PO SCH ×3 (10:56→22:03)
[2022-05-14] MEDS: MYLANTA SUSP PO PRN (11:49)
--- NOTE | 2022-05-14 12:35 | PCM.PROG ---
Date Seen by Provider: 05/14/22 Time Seen by Provider: 12:33 Subjective: dx. syncope, chest pain, svt Objective: Vitals: T=96.9 F, P=92, R=16, YD=742/77, SPO2=98 HEENT: []conjunctiva clear Neck: []supple Lungs: [] no respiratory distress CVS: []tachycardia Abdomen: []nondistended Extremities: []yeimi Neurological: []alert Skin: []pink Lab/Tests/Diagnostic Imaging: [] ekg:st, no stemi Plan: Dr Vegas consult pending, continue cardizem iv drip
[2022-05-14] MEDS ORDERED: CARDIZEM PO SCH (12:38)
[2022-05-14 12:53] LABS: CREATINE KINASE 37.4 U/L (30-135)
[2022-05-14 13:07] LABS: TROPONIN I 0.077 ng/ml (0.0000-0.120)
[2022-05-14] MEDS: CARDIZEM PO SCH ×2 (13:19→21:09)
[2022-05-14 13:25] LABS: THYROID STIMULATING HORMONE 0.319 uIU/L (0.465-4.68)
[2022-05-14] MEDS: CARDIZEM 125 MG in SODIUM CHLORIDE 100ML 100 ML IV SCH (15:13)
--- NOTE | 2022-05-14 15:23 | US ---
EXAMINATION: BILATERAL CAROTID ULTRASOUND HISTORY: Dizziness. COMPARISON: None available. TECHNIQUE: Sonographic evaluation of the bilateral carotid arteries was performed with pryor scale and color and spectral Doppler imaging. Ultrasound images were acquired and stored in a permanent Scytli ve. FINDINGS: Plaque distribution: Moderate calcific plaque in the bulbs Arterial velocities measured in centimeters per second: Right common carotid artery peak systolic velocity: 48 Right internal carotid artery peak systolic velocity: 60 Right internal carotid artery end diastolic velocity: 24 Right ICA/CCA ratio: 1.3 Right external carotid artery peak systolic velocity: 41 Left common carotid artery peak systolic velocity: 47 Left internal carotid artery peak systolic velocity: 50 Left internal carotid artery end diastolic velocity: 22 Left ICA/CCA ratio: 1.3 Left external carotid artery peak systolic velocity: 61 Vertebrals: - Right: Antegrade flow with normal waveform. - Left: Antegrade flow with normal waveform. Society of Radiologists in Ultrasound (SRU) consensus statement (Radiology 2003; 229:340-346. DOI 10 .[id number]) was used to estimate internal carotid artery stenosis. IMPRESSION: 1. Less than 50% stenosis in the right internal carotid artery. 2. Less than 50% stenosis in the left internal carotid artery. 3. Right Vertebral Artery: Antegrade. 4. Left Vertebral Artery: Antegrade.
[2022-05-14] MEDS: CORDARONE PO SCH (16:36)
[2022-05-14] MEDS ORDERED: NORCO 7.5-325 PO PRN (21:41)
[2022-05-15 05:17] LABS: BASOPHILS # (AUTO) 0.1 K/uL (0-0.2); BASOPHILS % (AUTO) 0.5 % (0.0-3.0); EOSINOPHILS # (AUTO) 0.2 K/ul (0.0-0.7); HEMATOCRIT 36.9 % (37.0-47.0); HEMOGLOBIN 12.1 g/dl (12.0-16.0); IMMATURE GRANULOCYTE % (AUTO) 0.4 % (0.0-5.0); LYMPHOCYTES % (AUTO) 8.8 (10.0-50.0); MEAN CORPUSCULAR HEMOGLOBIN 33.7 pg (27.0-31.0); MEAN CORPUSCULAR HGB CONC 32.8 (31.8-35.4); MEAN CORPUSCULAR VOLUME 102.8 fl (81.0-99.0); MONOCYTES # (AUTO) 1.1 K/uL (0.4-2.0); MONOCYTES % (AUTO) 9.7 (0-10); NEUTROPHILS # (AUTO) 8.7 K/ul (2.0-6.9); NEUTROPHILS % (AUTO) 78.6 % (42.2-75.2); PLATELET COUNT 175 10^3/uL (140-440); RDW COEFFICIENT OF VARIATION 13.2 % (11.6-14.8); RED BLOOD COUNT 3.59 10^6/ul (4.20-5.40); WHITE BLOOD COUNT 11.01 K/ul (4.6-10.2)
[2022-05-15 05:29] LABS: BLOOD UREA NITROGEN 10.9 mg/dL (7-17); CALCIUM 8.94 mg/dL (8.4-10.2); CARBON DIOXIDE 30.4 mmol/L (22-30.0); CHLORIDE 102.8 mmol/L (98-107); CREATININE 0.57 mg/dL (0.60-1.30); GLUCOSE 112.4 mg/dL (74-106); POTASSIUM 3.95 mmol/L (3.5-5.1); SODIUM 138.1 mmol/L (134.5-145)
[2022-05-15] MEDS: LASIX TAB PO SCH (05:57)
[2022-05-15] MEDS: SYNTHROID PO SCH (05:57)
[2022-05-15] MEDS: SODIUM CHLORIDE 1,000 ML IV SCH ×2 (08:03→23:03)
[2022-05-15] MEDS: CARDIZEM 125 MG in SODIUM CHLORIDE 100ML 100 ML IV SCH (08:06)
[2022-05-15] MEDS: PROZAC PO SCH (08:10)
[2022-05-15] MEDS: CARDIZEM PO SCH ×2 (08:10→20:49)
[2022-05-15] MEDS: MYSOLINE PO SCH (08:10)
[2022-05-15] MEDS: ASPIRIN EC PO SCH (08:11)
[2022-05-15] MEDS: LIPITOR PO SCH (08:11)
[2022-05-15] MEDS: CORDARONE PO SCH (08:11)
[2022-05-15] MEDS: MICRO-K CAP PO SCH ×3 (08:11→17:50)
[2022-05-15] MEDS: LOVENOX SUBCUT SCH (08:15)
--- NOTE | 2022-05-15 09:30 | PCM.PROG ---
Date Seen by Provider: 05/15/22 Time Seen by Provider: 09:15 Subjective: Patient feeling much better. Denies chest pain, dyspnea or lightheadedness. Objective: Vitals: T=97.2 F, P=98, R=15, CJ=198/23, SPO2=95 Alert, oriented and in NAD. HEENT: [] Neck: [] Supple Lungs: [] Chest clear. BS equal. CVS: [] Normal sinus rhythm. Abdomen: [] Soft, nontender. Extremities: [] Neurological: []Intact. Skin: [] Lab/Tests/Diagnostic Imaging: [] (1) Supraventricular tachycardia: Status: Acute Code(s): I47.1 - Supraventricular tachycardia SNOMED Code(s): 2339553 (2) History of syncope: Status: Acute Code(s): Z87.898 - Personal history of other specified conditions SNOMED Code(s): 381800253031669 (3) Atrial fibrillation: Status: Acute Code(s): I48.91 - Unspecified atrial fibrillation SNOMED Code(s): 05815354 Plan: Rhythm now sinus. Patient currently on cardizem and amiodarone orally. Will wean cardizem drip and observe.
--- NOTE | 2022-05-15 14:56 | CONS ---
DATE OF CONSULTATION: 05/14/22 REASON FOR CONSULTATION: Supraventricular tachycardia with rate of 170 with history of syncope. HISTORY OF PRESENT ILLNESS: 76-year-old white female brought to the emergency room because she had a near syncopal episode since morning. The patient had hit her head and chest when she had fallen. REVIEW OF SYSTEMS: CONSTITUTIONAL: Fatigue and weakness whenever she had a spell this morning. No night sweats. No malaise, lethargy. No fever or chills. HEENT: Eyes: No visual changes. No eye pain. No eye discharge. ENT: No sinus drainage. No epistaxis. No sinus pain. No sore throat. No odynophagia. No ear pain. No congestion. RESPIRATORY: No cough, no congestion. No hemoptysis. No shortness of breath. CARDIOVASCULAR: No angina symptoms. No CHF symptoms. No exertional chest discomfort. No atypical chest pain for CAD. No palpitations. No orthopnea. GASTROINTESTINAL: No abdominal pain. No nausea or vomiting. No diarrhea or constipation. No hematemesis. No hematochezia. GENITOURINARY: No urgency. No frequency. No dysuria. No hematuria. No obstructive symptoms. No discharge. No pain. No significant abnormal bleeding. MUSCULOSKELETAL: No musculoskeletal pain. No joint swelling. NEUROLOGICAL: No headache. No neck pain. No syncope. No seizures. No dizziness. PSYCHIATRIC: Not anxious. No depression. No suicidal thoughts. No homicidal thoughts. SKIN: No rash. No lesions. No wounds. ENDOCRINE: No unexplained weight loss. No weight gain. HEMATOLOGIC/LYMPHATIC: No anemia. No purpura. No petechiae. No prolonged or excessive bleeding. No palpable lymph nodes. MEDICATIONS: Atorvastatin Fluoxetine Furosemide Levothyroxine Potassium Primidone Aspirin PAST MEDICAL HISTORY: Dyslipidemia Hypothyroidism Supraventricular tachycardia SOCIAL/PERSONAL/FAMILY HISTORY: The patient lives the . Nonsmoker. No alcohol abuse. The patient is a full code. PHYSICAL EXAMINATION: GENERAL: The patient is oriented to time, place and person. VITAL SIGNS: Temperature 96.9, pulse 90, respiratory rate 16, BP 130/80, pulse ox 98% on room air. HEENT: Head normocephalic, atraumatic. Eyes: Extraocular muscles are intact. Pupils are equal, round and reactive to light and accommodation. Ears: No lesions. Nose appeared normal. Throat: No exudate or erythema. NECK: Supple. No JVD, no carotid bruit. No lymphadenopathy or thyromegaly. LUNGS: Clear to auscultation. Percussion note normal. Chest symmetrical. HEART: S1, S2, no S3. No murmurs. No cyanosis or clubbing. No ascites. Pulses: Dorsalis pedis and posterior tibial pulses +1 to +2 bilaterally. ABDOMEN: Soft. Nontender. Bowel sounds active. No CVA tenderness. No mass felt. EXTREMITIES: No edema. Full range of motion of all extremities, equal. NEUROLOGIC: No focal deficit. Cranial nerves II through XII are grossly intact. No headache, no double vision or headache. SKIN: Not dry. Intact. Turgor - normal. LYMPHATIC: No palpable lymph nodes/no lymphedema. MUSCULOSKELETAL: Normal joints with no swelling. Muscle tone is normal. LABS: Hemoglobin 11.6, hematocrit 35, WBC 11,000, normal differential. Creatinine 0.7, BUN 17, potassium 3.9, BNP 4,480. Troponin elevated but CK negative. Mildly elevated AST, ALT. CT scan of the head reported as no acute bleed. EKG first EKG showed SVT with rate of 175/min. Second EKG after two shots of Adenosine 6 mg, second 12 mg sinus rhythm, first degree AV block with PACs. ASSESSMENT: 1. History of paroxysmal SVT. Status post ablation and status post cardioversion a few times. Was followed by Dr. Bazzi now followed by Dr. Hernandez at [facility]. 2. Status post Watchman procedure done by Dr. Lui nearly a year ago. 3. Hypothyroidism. 4. Dyslipidemia. 5. Neuropathy. 6. Depression. 7. Mild anemia. RECOMMENDATION: 1. According to the patient, the patient was taken off medication by Dr. Gutierrez who is a drywall stripper helper when she started going to another drywall stripper helper at [facility], Dr. Hernandez. She use to be Amiodarone 200 mg p.o. daily and Amitriptyline a couple of months ago. Will start Amiodarone 200 mg p.o. daily. 2. T4 and TSH. 3. Decrease dose of Cardizem to 5 mg/hour, ___ 7.5. and start Cardizem 60 mg p.o. twice a day. 4. Continue the rest of the medications including Levothyroxine, Atorvastatin, Fluoxetine, Gabapentin, Lasix. 5. Will do Echocardiogram 2D M'Mode to evaluate LV function. 6. The patient is advised to followup with her primary care, Dr. Hernandez who is a drywall stripper helper. The patient is a full code. CONDITION: Stable. ADDENDUM: The patient also has a carotid scan ordered which was dynamically not significant. MTDD
[2022-05-16] MEDS ORDERED: CARDIZEM PO ONE (05:15)
[2022-05-16] MEDS: SYNTHROID PO SCH (05:41)
[2022-05-16] MEDS: LASIX TAB PO SCH (05:46)
[2022-05-16 05:54] LABS: BASOPHILS # (AUTO) 0.1 K/uL (0-0.2); BASOPHILS % (AUTO) 0.4 % (0.0-3.0); EOSINOPHILS # (AUTO) 0.2 K/ul (0.0-0.7); EOSINOPHILS % (AUTO) 1.7 % (0.0-7.0); HEMATOCRIT 35.9 % (37.0-47.0); HEMOGLOBIN 11.9 g/dl (12.0-16.0); IMMATURE GRANULOCYTE # (AUTO) 0.1 (0.0-1.0); IMMATURE GRANULOCYTE % (AUTO) 0.4 % (0.0-5.0); LYMPHOCYTES # (AUTO) 1.1 K/uL (0.60-3.4); LYMPHOCYTES % (AUTO) 8.1 (10.0-50.0); MEAN CORPUSCULAR HEMOGLOBIN 33.6 pg (27.0-31.0); MEAN CORPUSCULAR HGB CONC 33.1 (31.8-35.4); MEAN CORPUSCULAR VOLUME 101.4 fl (81.0-99.0); MONOCYTES # (AUTO) 1.4 K/uL (0.4-2.0); NEUTROPHILS # (AUTO) 11.1 K/ul (2.0-6.9); NEUTROPHILS % (AUTO) 79.4 % (42.2-75.2); PLATELET COUNT 200 10^3/uL (140-440); RDW COEFFICIENT OF VARIATION 13.1 % (11.6-14.8); RED BLOOD COUNT 3.54 10^6/ul (4.20-5.40); WHITE BLOOD COUNT 14.01 K/ul (4.6-10.2)
[2022-05-16 06:10] LABS: ALANINE AMINOTRANSFERASE 36.7 U/L (0-35); ALBUMIN 3.79 g/dL (3.5-5.0); ALKALINE PHOSPHATASE 74.3 U/L (53-141); BILIRUBIN,TOTAL 0.44 mg/dL (0.2-1.3); BLOOD UREA NITROGEN 9.8 mg/dL (7-17); CALCIUM 9.17 mg/dL (8.4-10.2); CARBON DIOXIDE 31.3 mmol/L (22-30.0); CHLORIDE 102.5 mmol/L (98-107); CREATININE 0.53 mg/dL (0.60-1.30); GLUCOSE 109.3 mg/dL (74-106); POTASSIUM 3.96 mmol/L (3.5-5.1); SODIUM 137.9 mmol/L (134.5-145); TOTAL PROTEIN 7.36 g/dL (6.3-8.2)
[2022-05-16] MEDS: ASPIRIN EC PO SCH (09:00)
[2022-05-16] MEDS ORDERED: CARDIZEM PO SCH ×2 (09:00→21:00)
[2022-05-16] MEDS: PROZAC PO SCH (09:01)
[2022-05-16] MEDS: CORDARONE PO SCH (09:01)
[2022-05-16] MEDS: MICRO-K CAP PO SCH ×3 (09:01→17:44)
[2022-05-16] MEDS: MYSOLINE PO SCH (09:01)
[2022-05-16] MEDS: LOVENOX SUBCUT SCH (09:02)
[2022-05-16] MEDS: LIPITOR PO SCH (09:20)
--- NOTE | 2022-05-16 13:23 | PCM.PROG ---
Date Seen by Provider: 05/16/22 Time Seen by Provider: 13:20 Subjective: dx. svt no chest pain, not dizzy Objective: Vitals: T=96.7 F, P=119, R=20, CH=835/87, SPO2=95 HEENT: []conjunctiva clear Neck: []supple Lungs: [] no respiratory distress CVS: []tachycardia Abdomen: []nondistended Extremities: []warm and dry Neurological: []alert and oriented Skin: []dry Lab/Tests/Diagnostic Imaging: [] K+ 3.9, wbc 14, trop 05/14 0.077 (1) Supraventricular tachycardia: Status: Acute Code(s): I47.1 - Supraventricular tachycardia SNOMED Code(s): 4449348 (2) History of syncope: Status: Acute Code(s): Z87.898 - Personal history of other specified conditions SNOMED Code(s): 816551547374004 (3) Atrial fibrillation: Status: Acute Code(s): I48.91 - Unspecified atrial fibrillation SNOMED Code(s): 34804485 Plan: obtain u/a, cxr, start po cardizem 60 tid, amiodarone [address] Vegas
[2022-05-16] MEDS: CARDIZEM PO SCH ×2 (13:49→20:50)
[2022-05-16 17:31] LABS: BILIRUBIN,URINE Negative (NEGATIVE); CLARITY,URINE Cloudy (CLEAR); COLOR,URINE Yellow (YELLOW); GLUCOSE, URINE (UA) Negative (NEGATIVE); KETONES,URINE Trace (NEGATIVE); LEUKOCYTE ESTERASE ,URINE 2+ (NEGATIVE); NITRITE,URINE Positive (NEGATIVE); PROTEIN,URINE 2+ (NEGATIVE); URINE, BLOOD 3+ (NEGATIVE)
[2022-05-16 17:35] LABS: AMORPHOUS SEDIMENT,UR 1+ (NOT PRESENT); BACTERIA,URINE 2+ (NOT PRESENT); URINE WBC, MICROSCOPIC TNTC (0-2)
[2022-05-16 17:36] LABS: YEAST,URINE 2+ (NOT PRESENT)
[2022-05-16] MEDS: ROCEPHIN 1 GM/50 ML D5W 1 GM/50 ML BAG IV SCH (17:56)
[2022-05-17] MEDS: CARDIZEM PO SCH ×2 (04:04→12:09)
[2022-05-17] MEDS: SYNTHROID PO SCH (05:50)
[2022-05-17] MEDS: LASIX TAB PO SCH ×2 (05:50→06:08)
[2022-05-17 06:10] LABS: BASOPHILS # (AUTO) 0.1 K/uL (0-0.2); BASOPHILS % (AUTO) 0.5 % (0.0-3.0); EOSINOPHILS # (AUTO) 0.3 K/ul (0.0-0.7); EOSINOPHILS % (AUTO) 2.4 % (0.0-7.0); HEMOGLOBIN 11.9 g/dl (12.0-16.0); IMMATURE GRANULOCYTE % (AUTO) 0.3 % (0.0-5.0); LYMPHOCYTES % (AUTO) 9.3 (10.0-50.0); MEAN CORPUSCULAR HGB CONC 33.1 (31.8-35.4); MEAN CORPUSCULAR VOLUME 102.9 fl (81.0-99.0); MONOCYTES # (AUTO) 1.3 K/uL (0.4-2.0); MONOCYTES % (AUTO) 12.5 (0-10); NEUTROPHILS # (AUTO) 7.7 K/ul (2.0-6.9); PLATELET COUNT 189 10^3/uL (140-440); RDW COEFFICIENT OF VARIATION 13.5 % (11.6-14.8); WHITE BLOOD COUNT 10.31 K/ul (4.6-10.2)
[2022-05-17 06:23] LABS: ALANINE AMINOTRANSFERASE 35.5 U/L (0-35); ALBUMIN 3.72 g/dL (3.5-5.0); ALKALINE PHOSPHATASE 83.9 U/L (53-141); ASPARTATE AMINO TRANSFERASE 40.7 U/L (14-36); BILIRUBIN,TOTAL 0.4 mg/dL (0.2-1.3); BLOOD UREA NITROGEN 11.4 mg/dL (7-17); CALCIUM 9.2 mg/dL (8.4-10.2); CARBON DIOXIDE 32.3 mmol/L (22-30.0); CHLORIDE 102.4 mmol/L (98-107); CREATININE 0.64 mg/dL (0.60-1.30); POTASSIUM 3.97 mmol/L (3.5-5.1); SODIUM 138.5 mmol/L (134.5-145); TOTAL PROTEIN 7.27 g/dL (6.3-8.2)
[2022-05-17] MEDS: PROZAC PO SCH (08:51)
[2022-05-17] MEDS: MICRO-K CAP PO SCH ×2 (08:51→12:09)
[2022-05-17] MEDS: LIPITOR PO SCH (08:51)
[2022-05-17] MEDS: MYSOLINE PO SCH (08:51)
[2022-05-17] MEDS: CORDARONE PO SCH (08:51)
[2022-05-17] MEDS: ASPIRIN EC PO SCH (08:52)
[2022-05-17] MEDS: LOVENOX SUBCUT SCH (08:52)
[2022-05-17] MEDS: ROCEPHIN 1 GM/50 ML D5W 1 GM/50 ML BAG IV SCH (08:52)
[2022-05-17 10:51] VITALS: BP 130/87; TEMP 96.5
[2022-05-17] MEDS: MYLANTA SUSP PO PRN (11:21)
--- NOTE | 2022-05-17 13:21 | PCM.DC ---
Final Diagnosis: uti, syncope, chest pain, svt Physical Exam Appearance: Well-appearing Ill-appearing: None Pain Distress: None Eyes: Conjunctiva clear ENT: Oropharynx normal Neck: Supple Respiratory: Airway patent Cardiovascular: RRR GI/: Nontender Musculoskeletal: ROM intact Skin: Normal color Neurological: Alert and Oriented Psychiatric: Affect appropriate (1) Supraventricular tachycardia: Status: Acute Code(s): I47.1 - Supraventricular tachycardia SNOMED Code(s): 6121483 (2) History of syncope: Status: Acute Code(s): Z87.898 - Personal history of other specified conditions SNOMED Code(s): 109941534933466 (3) Atrial fibrillation: Status: Acute Code(s): I48.91 - Unspecified atrial fibrillation SNOMED Code(s): 81891637 Reason for Hospitalization: syncope Prognosis/Condition at Discharge: good Medications at Discharge: cardizem, amiodarone, keflex and home meds Lab/Diagnostics: u/a + bacteria, cxr nap, wbc 10 Education Provided to Patient and Family: increase oral fluids Follow-ups: see your doctor, and Dr Vegas Discharge Disposition: Home Hospital Course: improved, no chest pain Plan: see your doctor
--- NOTE | 2022-05-17 14:05 | DI ---
EXAM: TWO-VIEW CHEST HISTORY: Atrial fibrillation, history of chest pain. COMPARISON: 05/05/2016 FINDINGS: No focal pulmonary consolidation or mass is identified. No pneumothorax or pleural effusio n is seen. The cardiac silhouette and central pulmonary vasculature are normal in prominence. Lower cervical spine anterior fusion instrumentation is noted. Bilateral acromioclavicular joint osteoart hritis is noted. Multilevel mild degenerative disc disease is seen in the mid and lower thoracic spi ne. Cholecystectomy clips is present. IMPRESSION: No acute cardiopulmonary findings.
--- NOTE | 2022-05-19 08:30 | ECHO2D ---
Date of Exam: 05/15/2022 Ordering Physician: DR. JONATHAN VINCENT/DR. MUNOZ Room #: [id number] Reason for Echo: A-FIB/ CHEST PAIN M-Mode Normal Adult Results LV Dimensions Normal Adult Results AoV Opening excursions >1.6 >1.6 LVEDD-base- 3.5-5.8 4.5 Ao root dimensions 2.0-3.7 3.0 LVESD-base- 3.1-4.6 L. Atrium dimensions 1.9-3.8 5.3 Post. Wall thickness 0.8-1.1 1.2 IV septum (thickness) 0.7-1.2 1.4 Post. Wall excursion 0.72-1.3 NORMAL Septal motion 0.8 Systolic motion R. Ventricular cavity 1.5-2.0 NORMAL LVEF 60% 54% Paradoxical septal wall motion NORMAL 2-D : ENLARGED LEFT ATRIAL CAVITY--MILDLY HYPOKINETIC SEPTAL WALL--NORMAL VALVES--NORMAL LEFT VENTRICLE SIZE, NO EFFUSION, NO THROMBUS COLOR FLOW: MODERATE TO SEVERE MITRAL REGURGITATION, MODERATE TRICUSPID REGURGITATION M-MODE: MV: NORMAL AV: NORMAL TV: NORMAL PV: CHAMBER SIZE: ENLARGED LEFT ATRIAL CAVITY WALL MOTION: MILDLY HYPOKINETIC SEPTAL WALL (STIFF) PERICARDIUM: NORMAL INTERPRETATION: 1. LEFT VENTRICLE HYPERTROPHY WITH ENLARGED LEFT ATRIAL CAVITY 2. MILDLY HYPOKINETIC SEPTUM (STIFF) WITH NEAR NORMAL EJECTION FRACTION 3. MODERATE TO SEVERE MITRAL REGURGITATION AND MODERATE TRICUSPID REGURGITATION 4. NO EFFUSION, NO THROMBUS MTDD
--- NOTE | 2022-05-19 15:04 | CONS ---
DATE OF CONSULTATION: 05/15/22 REASON FOR CONSULTATION: 76 year old white female hospitalized with supraventricular tachycardia with rate of about 73 per minute with syncopal episode and postural hypotension and syncopal episodes related to tachycardia arrhythmias. HISTORY OF PRESENT ILLNESS: She is feeling a lot better with no evidence of any tachyarrhythmias while she was in the hospital. She was treated with Adenosine two shots. Now on Cardizem drip. By mistake patient has been getting 30 mg/hour drip, stop this morning. REVIEW OF SYSTEMS: CONSTITUTIONAL: No night sweats. No fatigue, malaise, lethargy. No fever or chills. HEENT: Eyes: No visual changes. No eye pain. No eye discharge. ENT: No sinus drainage. No epistaxis. No sinus pain. No sore throat. No odynophagia. No ear pain. No congestion. RESPIRATORY: No cough, no congestion. No hemoptysis. No shortness of breath. CARDIOVASCULAR: No angina symptoms. No CHF symptoms. No atypical chest pain for CAD. No palpitations. No orthopnea. GASTROINTESTINAL: No abdominal pain. No nausea or vomiting. No diarrhea or constipation. No hematemesis. No hematochezia. GENITOURINARY: No urgency. No frequency. No dysuria. No hematuria. No obstructive symptoms. No discharge. No pain. No significant abnormal bleeding. MUSCULOSKELETAL: No musculoskeletal pain. No joint swelling. NEUROLOGICAL: No headache. No neck pain. No syncope. No seizures. No dizziness. PSYCHIATRIC: Not anxious. No depression. No suicidal thoughts. No homicidal thoughts. SKIN: No rash. No lesions. No wounds. ENDOCRINE: No unexplained weight loss. No weight gain. HEMATOLOGIC/LYMPHATIC: No anemia. No purpura. No petechiae. No prolonged or excessive bleeding. No palpable lymph nodes. PHYSICAL EXAMINATION: GENERAL: The patient is oriented to time, place and person. VITAL SIGNS: Temperature 97, pulse 98, respiratory rate 15, blood pressure 137/23, pulse ox 95%. HEENT: Head normocephalic, atraumatic. Eyes: Extraocular muscles are intact. Pupils are equal, round and reactive to light and accommodation. Ears: No lesions. Nose appeared normal. Throat: No exudate or erythema. NECK: Supple. No JVD, no carotid bruit. No lymphadenopathy or thyromegaly. LUNGS: Decreased breath sounds, clear. Percussion note normal. Chest symmetrical. HEART: S1, S2, no S3. No murmurs. No cyanosis or clubbing. No ascites. Pulses: Dorsalis pedis and posterior tibial pulses +1 to +2 bilaterally. ABDOMEN: Soft. Nontender. Bowel sounds active. No CVA tenderness. No mass felt. EXTREMITIES: No edema. Full range of motion of all extremities, equal. NEUROLOGIC: No focal deficit. Cranial nerves II through XII are grossly intact. No headache, no double vision or headache. SKIN: Not dry. Intact. Turgor - normal. LYMPHATIC: No palpable lymph nodes/no lymphedema. MUSCULOSKELETAL: Normal joints with no swelling. Muscle tone is normal. EKG showed sinus rhythm at a rate of 70-80 per minute. LABS: Hemoglobin 12, hematocrit 36, WBC 11,000, normal differential, creatinine 0.5, BUN 10, potassium 3.9 ASSESSMENT: Paroxysmal supraventricular tachycardia, PLAN: 1. Amiodarone has been restarted 200 mg every day, 2. Cardizem 5 mg/hour drip to be weaned off, Cardizem 60 PO twice a day. 3. Patient has an echo done which showed normal LV contractility, borderline LVH, enlarged LA cavity. Patient has moderate to severe MR with moderate tricuspid regurgitation. This was discussed with the patient. 4. Patient can be discharged home to be followed by Dr. Maddox and Dr. Hernandez, pig iron loader. Condition: Stable Patient's case discussed with Dr. Hancock, hospitalist. JEWELS
--- NOTE | 2022-05-19 15:24 | CONS ---
DATE OF CONSULTATION: 05/16/22 REASON FOR CONSULTATION: 76 year old white female hospitalized with supraventricular tachycardia with rate of 170 per minute. HISTORY OF PRESENT ILLNESS: Patient has improved. She has no syncope and her rate went up to 131-140 with going to the bathroom and was given 120 mg of Cardizem PO an extra dose this morning and her heart rate is 60-70 per minute and feeling a lot better. She wants to go home. REVIEW OF SYSTEMS: CONSTITUTIONAL: No night sweats. No fatigue, malaise, lethargy. No fever or chills. HEENT: Eyes: No visual changes. No eye pain. No eye discharge. ENT: No sinus drainage. No epistaxis. No sinus pain. No sore throat. No odynophagia. No ear pain. No congestion. RESPIRATORY: No cough, no congestion. No hemoptysis. No shortness of breath. CARDIOVASCULAR: No angina symptoms. No CHF symptoms. No atypical chest pain for CAD. No palpitations. No orthopnea. GASTROINTESTINAL: No abdominal pain. No nausea or vomiting. No diarrhea or constipation. No hematemesis. No hematochezia. GENITOURINARY: No urgency. No frequency. No dysuria. No hematuria. No obstructive symptoms. No discharge. No pain. No significant abnormal bleeding. MUSCULOSKELETAL: No musculoskeletal pain. No joint swelling. NEUROLOGICAL: No headache. No neck pain. No syncope. No seizures. No dizziness. PSYCHIATRIC: Not anxious. No depression. No suicidal thoughts. No homicidal thoughts. SKIN: No rash. No lesions. No wounds. ENDOCRINE: No unexplained weight loss. No weight gain. HEMATOLOGIC/LYMPHATIC: No anemia. No purpura. No petechiae. No prolonged or excessive bleeding. No palpable lymph nodes. PHYSICAL EXAMINATION: GENERAL: The patient is oriented to time, place and person. VITAL SIGNS: Temperature 98.1, pulse 100, respiratory rate 18, blood pressure 133/85, pulse ox 98% HEENT: Head normocephalic, atraumatic. Eyes: Extraocular muscles are intact. Pupils are equal, round and reactive to light and accommodation. Ears: No lesions. Nose appeared normal. Throat: No exudate or erythema. NECK: Supple. No JVD, no carotid bruit. No lymphadenopathy or thyromegaly. LUNGS: Decreased breath sounds but clear. Percussion note normal. Chest symmetrical. HEART: S1, S2, no S3. Grade 1/6 systolic murmur. No cyanosis or clubbing. No ascites. Pulses: Dorsalis pedis and posterior tibial pulses +1 to +2 bilaterally. ABDOMEN: Soft. Nontender. Bowel sounds active. No CVA tenderness. No mass felt. EXTREMITIES: No edema. Full range of motion of all extremities, equal. NEUROLOGIC: No focal deficit. Cranial nerves II through XII are grossly intact. No headache, no double vision or headache. SKIN: Not dry. Intact. Turgor - normal. LYMPHATIC: No palpable lymph nodes/no lymphedema. MUSCULOSKELETAL: Normal joints with no swelling. Muscle tone is normal. Telemetry shows sinus rhythm with PAC and also has first degree AV block. LABS: Hemoglobin 11.9, hematocrit 35, WBC 14,000, normal differential, creatinine 0.5, BUN 9.8, potassium 3.9 ASSESSMENT: Paroxysmal supraventricular tachycardia with rapid ventricular response causing syncopal episodes RECOMMENDATIONS: 1. Continue Amiodarone 200 mg PO daily 2. Cardizem 60 mg PO TID, otherwise keep it close to 8 hours 3. Continue the rest of the medications as before Patient is strongly advised to see Dr. Maddox as soon as possible and Dr. Hernandez, brand director, as soon as possible. The pulse is rapid if she finds it more than 121-130 at rest, then advised to take one Cardizem 60 mg extra. Patient's case is discussed with attending, Dr. Carpenter today and explained that her cardiovascular status is stable to be be discharged home. CHIRAGD
== END 2022-05-17 13:50 | disposition home or self-care (01) | DRG 309 ==
LOC: ED 20:39 → OBSVTOIN 22:48 → MEDSURG A 22:48 → INTOOBSV 22:48 → MEDSURG A 23:35
PROVIDERS: ADMIT Internal Medicine Geriatric Medicine; ATTEND Emergency Medicine Emergency Medical Services
DX: R41.9 Unspecified symptoms and signs involving cognitive functions and awareness; Z87.898 Personal history of other specified conditions; D64.9 Anemia, unspecified; F32.A Depression, unspecified; R55 Syncope and collapse; N39.0 Urinary tract infection, site not specified; E03.9 Hypothyroidism, unspecified; I48.91 Unspecified atrial fibrillation; S09.90XA Unspecified injury of head, initial encounter; B96.20 Unspecified Escherichia coli [E. coli] as the cause of diseases classified elsewhere; I47.1 Supraventricular tachycardia; I44.0 Atrioventricular block, first degree; Z20.822 Contact with and (suspected) exposure to COVID-19; I65.03 Occlusion and stenosis of bilateral vertebral arteries; R07.9 Chest pain, unspecified